=== PATIENT | female | born 1940 | race Caucasian/White ===

== ENCOUNTER 2018-10-02 06:32 | Day surgery (SDC) | payer MEDICARE, OTHER, SELFPAY ==
[2018-10-02] VITALS (14 sets, daily range): BP systolic 126–187; BP diastolic 53–85; PULSE 52–75; RESP 16–20; TEMP 36.1–36.8; O2SAT 93–99; BMI 26.2
[2018-10-02] MEDS: LACTATED RINGERS 1,000 ML 100 ML IV ×3 (07:34→21:11)
--- NOTE | 2018-10-02 07:46 | PM.PREOP ---
Pre-operative Note Interval Note History & Physical reviewed/Exam performed by Physician: Yes Changes to H&P: No
[2018-10-02] MEDS: CEFAZOLIN 2 GM/100 ML FROZ.PIGGY IV (07:52)
[2018-10-02] MEDS: BUPIVACAINE 0.25% W/ EPI 30 ML VIAL INJ (08:27)
[2018-10-02] MEDS: fentaNYL 100 MCG/2 ML INJ 50 MCG IV ×2 (09:36→09:45)
--- NOTE | 2018-10-02 12:09 | PC.NURSE ---
Addendum entered by Alba Granados R.N. 10/02/18 14:59: Pain well-controlled with scheduled Tylenol. Weaned off O2, sats in the mid 90's on room air. Resting quietly, denies needs at this time. Light in reach, bed alarm on. Original Note: Post-op: Arrived to room 216 at 1045. Drowsy at that time, alert and awake now. No bleeding on tatiana-pad. Carrillo to gravity, urine clear yellow. IVF per order, site in R wrist/hand WNL. Reports 3/10 pain in her thighs, relieved when SCD's were turned off. Instructed re: importance of ankle waving when not wearing SCD's. On 2L O2 per NC, sats in the mid 90's. Lungs CTA, HRR. Denies N/V, BT present but hypoactive. Denies flatus. Oriented to room and call light, encouraged to make needs known. Light in reach, bed alarm on.
[2018-10-02] MEDS: ACETAMINOPHEN 325 MG TABLET 975 MG PO ×2 (12:57→20:28)
--- NOTE | 2018-10-02 16:53 | PC.NURSE ---
Addendum entered by Cat Thompson R.N. 10/02/18 21:25: Pt med at 2100 w/tylenol for discomfort. Small amount red drainage noted on tatiana pad and bed. Bed linen changed. Pt tolerated sitting in chair for a few minutes w/ bed changed w/o incidence. IVF continue via pump as per orders Carrillo cath patent clear yellow urine Pt refused SCDs even after pt education. Call light w/in reach, bed alarm on for pt safety. Continue w/plan of care. Original Note: Pt visiting with family. Denies discomfort at this time. Lungs clear, SpO2 98% RA IV LR infusing into the right hand at 100cc/hr via pump w/o incidence. Abdomen soft. Tatiana pad CDI. Carrillo cath patent clear yellow urine. Call light w/in reach, bed alarm on for pt safety.
[2018-10-02] MEDS: DOCUSATE 250 MG CAPSULE PO (19:59)
[2018-10-02] MEDS: CITALOPRAM 20 MG TABLET 40 MG PO (20:26)
[2018-10-03 00:09] VITALS: BP 163/60; PULSE 66; RESP 16; TEMP 36.6; O2SAT 97
[2018-10-03] MEDS: ACETAMINOPHEN 325 MG TABLET 975 MG PO ×2 (00:10→05:49)
--- NOTE | 2018-10-03 00:52 | PC.NURSE ---
2300- POD#0 anterior cystocele; moore catheter in place patent draining pale yellow urine. Pt denies any burning sensation but states she feels like she has to urinate 'all the time'. Bladder not distended; LR running as ordered. Pt remains A+Ox3. 0000- PO tylenol given for 5/10 pain at surgical site. VSS; no needs. 0600- Evening RN told this RN to remove moore @ 0600 however no orders or notes are present in the computer from the MD. Will pass onto next nurse.
[2018-10-03 05:05] VITALS: BP 148/71; PULSE 63; RESP 16; TEMP 36.4; O2SAT 95
[2018-10-03 06:07] LABS: Add Manual Diff / Slide Review NO; Basophils Absolute Auto 0 /uL (0-100); Basophils Percent Auto 0.4 % (0-2); Eosinophils Absolute Auto 0 /uL (0-450); Eosinophils Percent Auto 0.2 % (2-4); Hematocrit 38.5 % (36-46); Lymphocytes Absolute Auto 1100 /uL (1100-4500); Mean Corpuscular HGB Conc 33.7 % (30-36); Mean Corpuscular Hemoglobin 29.6 PG (26-34); Monocytes Absolute Auto 600 /uL (0-900); Monocytes Percent Auto 5.1 % (3-14); Neutrophils Absolute Auto 9200 /uL (1500-7000); Neutrophils Percent Auto 84.3 % (50-75); Platelet Count 170 X10^3/uL (150-400); Red Blood Cell Count 4.38 X10^6/uL (4.0-5.2); Red Cell Distribution Width 13.5 % (11.6-14.8); White Blood Cell Count 10.9 X10^3/uL (4.5-11.0)
[2018-10-03 07:45] VITALS: BP 153/62; PULSE 52; RESP 16; TEMP 36.5; O2SAT 96
[2018-10-03] MEDS: DOCUSATE 250 MG CAPSULE PO (08:57)
[2018-10-03 11:30] VITALS: BP 150/70; PULSE 58; RESP 16; TEMP 36.5; O2SAT 99
--- NOTE | 2018-10-03 14:03 | PC.NURSE ---
Day shift: Pt left unit via WC with this editorial writer to her friends private car for a ride home at 1400. Paperwork signed and all questions answered. Pt has all personal belongings as well as MD scrips.
--- NOTE | 2018-10-03 14:35 | CM.DANOTE ---
Discharge Planning/Care Management DCP: assessment: case received and discussed in Team Rounds. Pt is a 78 year old female who admitted to Dr. Bennett yesterday for a planned gynecological surgery. Payer: Medicare and for Life Admission status: SDC: confirmed by UR IRENA Jackson. Dr. Bennett saw pt today and ok'd her for a d/c home today. Went to room to check in with pt. IRENA Villarreal confirmed that she left for home at 1400 in pvt vehicle driven by a friend. No concerns re the d/c were noted by the care team members. Advanced directive, confirm from FAMILY Start: 10/02/18 11:55 Freq: Q24H Status: Discharge Protocol: Document 10/02/18 11:55 KTE (Rec: 10/02/18 11:55 KTE [email or web address]) Advance Directive, confirm on record Time 11:55 Person contacted family Copy received No Document 10/03/18 11:19 YAD (Rec: 10/03/18 11:19 YAD [id number]) Advance Directive, confirm on record Time 11:55 Person contacted family Copy received No Time 11:19 Person contacted patient Copy received No CM Discharge Assessment Start: 10/03/18 14:34 Freq: Status: Active Protocol: Document 10/03/18 14:35 ITV (Rec: 10/03/18 14:35 ITV [id number]) Discharge Planning Assessment Advance Directives? Yes Advance Directives on File No History Provided By Patient Medical Record Prior Living Arrangements House Household Members none Willing to Return to Facility? No: N/A Review Status In Process Next Review Type Continued Stay Review Pre-Anesthesia Assessment Start: 09/27/18 08:14 Freq: Status: Discharge Protocol: Document 09/27/18 08:14 CAB (Rec: 09/27/18 08:22 CAB [id number]) Pre-Anesthesia Assessment Patient Information Reviewed Via Chart Review Primary Care Provider Marie Larios Seen Specialist in Last 12 Months Yes Specialist Seen Director Of Technology Primary Language Dutch License Issuer Required No Height 165.1 cm Hx Anesthesia Reactions Unknown Anesthesia Review Requested No Collar Band Creaser No alcohol intake current alcohol intake frequency 0-2 drinks per day Smoking Status Never smoker History of Falling (Recent or History of Yes ) Patient is completely paralyzed or No completely immobile Mental Status Oriented to own ability Is patient on oxygen? No Does patient have NARAYANAN/SOB No Hx Sleep Apnea No Currently Taking a Beta Jennifer No Hx Chest Pain No Hx SOB No Hx Syncope or Dizziness No Anti-Coagulant Therapy No Has a Roughener No Cardiac Testing No Hx Pacemaker/ICD No Pacemaker Rep Required? No Cardiac Clearance Received Not Applicable Bladder Pattern Incontinent Urgency Urinary Catheter Present No Hx Urinary Self Catheterization No Diabetes No Patient No Lactating No Patient Discharge Plan Description Return Home
--- NOTE | 2018-10-12 16:52 | P.OP_ITS ---
Operative Date/Time/Diagnoses Date of procedure: 10/02/18 Time of procedure: 09:00 Pre-op diagnosis: Symptomatic cystocele and rectocele Post-op diagnosis: same Procedure: Procedures Operation Date: 10/02/18 07:45 Actual Procedures Side Surgeon p Colporrhaphy Anterior/Posterior Colporrhaphy Cat Bennett MD Indications: Symptomatic cystocele and rectocele Surgeon: Cat Bennett Group Product Manager: Rodolfo Gomes Anesthesia Type: General Operative Notes Closure Type: primary Specimen(s): none Applied: catheter Estimated blood loss (mL): 5 Blood products transfused: none Procedure in detail: The patient was taken to the operating room where she was placed in the dorsal supine position. After adequate general endotracheal anesthesia was achieved, she was placed in the dorsal lithotomy position, and prepped and draped in the usual sterile fashion. A time-out was performed. 2 Allis clamps were placed at the apex of the cystocele. 6 mL of half percent Marcaine with epinephrine were injected and an incision was made with a #10 blade between the 2 Allis clamps. Wide Allis clamps were placed on the midline of the cystocele approximately 5. The mucosa was undermined using the Metzenbaum scissors and the mucosa incised in the midline moving the wide Allis clamps to the edges of the mucosa. The mucosa was dissected off the underlying fascia using an open moistened Ray-Mayela and a #10 blade. The fascia was reapproximated with 0 Vicryl with a series of horizontal mattress sutures. The excess vaginal mucosa was excised. The mucosa was closed using simple interrupted sutures with 2-0 Vicryl including the underlying fascia to close the space. The weighted speculum was removed from the vagina. Allis clamps were placed at the mucocutaneous junction at the introitus. 6 mL of half percent Marcaine with epinephrine were injected. An incision was made with a #10 blade between the 2 Allis clamps, and a triangular piece of skin and underlying subcutaneous tissue was removed. Allis clamps were placed in the midline of the rectocele. 10 mL of half percent Marcaine with epinephrine were injected submucosally. The mucosa was undermined using the Metzenbaum scissors and the mucosa incised in the midline, moving the wide Allis clamps to the mu cosal edges. The underlying fascia was dissected off of th mucosa using an open moistened Ray-Mayela and a #10 blade. The fascia was reapproximated using 0 Vicryl with a series of horizontal mattress sutures. The excess vaginal mucosa was excised. The mucosa was closed using a series of simple interrupted sutures with 2-0 Vicryl including the underlying fascia to close the space. On the perineum 0 Vicryl was used to reapproximate the levator muscle. The subcutaneous layer was closed with 2-0 Vicryl. The skin was closed with 3-0 chromic in a subcuticular fashion. Hemostasis was achieved. A Betadine moistened vaginal pack was placed into the vagina. A rectal exam was done and there were no sutures palpable in the rectum. The urine was clear. Sponge, lap, and instrument counts were correct x-2. The patient tolerated the procedure well, was taken to PACU in stable condition. Complications: none Post-operative Condition: stable Disposition: PACU Plan for aftercare: To acute care after recovery
--- NOTE | 2018-10-12 16:57 | PM.DS.1 ---
History of Present Illness Date Patient Seen: 10/03/18 Time Patient Seen: 13:45 Chief complaint: [id number] ANTERIOR POSTERIOR REPAIR *OPB* Narrative: Patient is a 78-year-old postop day # 1 status post anterior and posterior repair Discharge Providers Date of admission: 10/02/2018 Discharge Date: 10/03/18 Primary care physician: Marie Larios DO Discharge provider: Cat Bennett MD Summary Discharge Diagnosis: Third-degree cystocele 2nd to third-degree rectocele Status post anterior and posterior repair Hospital Course: Patient was admitted on 10/02/2018 for a scheduled anterior and posterior repair. She underwent this procedure without complication. On postop day # 1 she was able to void with decreasing postvoid residuals. She had no nausea or vomiting. She had no significant bleeding. She was tolerating a diet and ambulating independently. She was discharged home on postop day # 1. Status at Discharge Cognitive/behavioral status at discharge: oriented Functional status at discharge: independent ambulation Overall status at discharge: patient is progressing back to baseline Time Spent with Patient Less than 30 minutes Exam Vital Signs (past 8 hours): Oxygen Delivery Method Room Air Oxygen Flow Rate 0 Narrative Exam Narrative: Generally: Patient is sitting up in bed, no acute distress Lungs: Clear to auscultation bilaterally Cardiovascular: Regular rate and rhythm Abdomen: Soft and flat. Good bowel sounds. Perineum: Dry Extremities: Negative Homans, no edema Objective Labs Result Diagrams: 10/03/18 06:00 Discharge Plan Discharge Plan Patient Disposition: Home Discharge comment: Call with fever, chills or bleeding vaginally more than spotty to light Ibuprofen 400-600mg every 6 hours as needed Stool softners No heavy lifting or lunging Discharge Med Rec/Prescriptions Prescriptions: New oxycodone-acetaminophen [Percocet] 5-325 mg tablet 1 tab PO Q4-6H PRN (Reason: pain) Qty: 20 RF: 0 Continued bupropion HCl 150 mg tablet sustained-release 12 hr 150 mg PO DAILY RF: 0 citalopram 40 mg tablet 40 mg PO DAILY RF: 0 Discontinued acetaminophen 650 MG tablet extended release 650 mg PO Q6-8H Qty: 0 RF: 0 estradiol [Estrace] 0.01 % (0.1 mg/gram) cream 1 gram VAG .COMPLEX Qty: 42.5 RF: 2 estradiol [Vagifem] 10 mcg tablet 10 mcg VAG .COMPLEX Qty: 20 RF: 3 Follow up/Referrals: Cat Bennett MD [Physician] - 1 Month ( 3 week follow up ) Discharge Orders: Discharge (Order); Ordered 10/03/18 Ordered By: Cat Bennett Provider Discharge Instructions Diet: Diet as Tolerated Activity: No heavy lifting No lunging or squatting Skin/Wound/Dressing Care Report to your healthcare provider any signs of infection, such as:: chills, fever, increased pain and unusual drainage Visit Report/Discharge Packet Instructions: DI for Cystocele/Rectocele, Oxycodone/Acetaminophen (By mouth) Stand Alone Forms: Surgery Discharge Discharge Data Primary Care Provider: Marie Larios Attending Provider: Cat Bennett Discharges patient from system. Discharge Date/Time: 10/03/18 14:04 Quality VTE Deep Vein Thrombosis/Pulmonary Embolism Present on Admission: No
== END 2018-10-03 14:04 | disposition home or self-care (01) ==
LOC: OR 06:42 → AC 06:52
PROVIDERS: PCP Family Medicine; Visit Provider Obstetrics & Gynecology
PROC: (CPT 57260; principal; 2018-10-02 07:45)
DX: N81.10 Cystocele, unspecified (principal); N81.6 Rectocele
CPT/HCPCS: 57260; 36415; 85025; J0690; J1100; J2405; J2704; J3010

== ENCOUNTER → 2018-11-13 11:36 | Outpatient (CLI) | payer MEDICARE, OTHER, SELFPAY ==
[2018-10-02 11:42] VITALS: BMI 26.2
[2018-11-13 12:34] LABS: Appearance Urine UA CLOUDY; Bilirubin Urine UA NEGATIVE (NEGATIVE); Color Urine UA YELLOW; Glucose Urine UA NEGATIVE (Negative); Ketones Urine UA NEGATIVE (NEGATIVE); Leukocyte Esterase Urine UA 2+ (NEGATIVE); Nitrite Urine UA NEGATIVE (Negative); Occult Blood Urine UA 3+ (Negative); Protein Urine UA 1+ (Negative); Urobilinogen Urine UA 0.2 E.U./dL (0.2)
[2018-11-13 12:47] LABS: RBC Urine 5-10/HPF (0-5/HPF)
[2018-11-13 12:48] LABS: Bacteria Urine Many (>30); Culture Indicated Urine Specimen Cultured; Squamous Epithelial Cell Urine None Seen (0-5/HPF); Transitional Epi Cells Urine 0-1/HPF (0-5/HPF); WBC Urine 30-100/HPF (0-5/HPF)
== END ==
PROVIDERS: PCP Family Medicine; Visit Provider Obstetrics & Gynecology
DX: R30.0 Dysuria (principal); R31.9 Hematuria, unspecified
CPT/HCPCS: 81001; 87077; 87086; 87186

== ENCOUNTER 2019-01-30 09:45 | Outpatient (RCR) | payer MEDICARE, OTHER, SELFPAY ==
[2018-10-02 11:42] VITALS: BMI 26.2
--- NOTE | 2018-12-20 14:36 | PT.OIE ---
Current Diagnoses Other specific joint derangements of left hip, not elsewhere classified (12/18/18) Pain in unspecified hip (12/18/18) Pelvic and perineal pain (12/18/18) Left lower quadrant pain (12/18/18) Past Medical History (Last Updated 09/27/18 @ 08:22 by Michelle Sutton RN) Breast cancer, left (Acute) Cystocele with rectocele (Acute) Past Surgical History (Last Updated 10/26/18 @ 16:41 by Rosa Payne) History of vaginal hysterectomy (Acute) Status post left breast lumpectomy (Acute) Status post surgery (Acute 10/02/18) Provider Visit Care Team Role Provider Type Marie Larios DO Primary Care Provider Non-Staff Specialty: Family Practice Address: [address] [place] [address], [phone] Email: Cat Bennett MD Attending Provider Physician Specialty: PAYMENT REP Address: [address] [place] [address], [id number] Email: [email or web address] Physical Therapy Initial Evaluation PT-OP-A Visit Information Start: 12/20/18 13:47 Freq: Status: Active Protocol: Document 12/18/18 10:30 AMH (Rec: 12/20/18 14:30 AMH [email or web address]) Out-Patient Physical Therapy Visit Information Visit Information Visit Type Initial Evaluation Visit Note 78 year old female with c/o left sided pelvic and groin pain that has been going on for a few years. Standing and walking makes it worse Visit Start Time 10:30 Visit Stop Time 11:15 Total Visit Minutes 45 Visit Number 1 Evaluation Information Evaluation Date 12/18/18 PT-OP-B Current Condition Start: 12/20/18 13:47 Freq: Status: Active Protocol: Document 12/18/18 10:30 AMH (Rec: 12/20/18 14:30 AMH [email or web address]) Current Condition History of Current Condition Onset Date symptoms began a few years ago Current Complaints left sided groin and pelvic pain that limits walking History of Current Condition Juani reports her symptoms of left sided groin pain began a few years ago. She attributed her pain with a prolapsed bladder and rectum as she was having a great deal of pelvic pressure from this. She did undergo a anterior posterior repair a year ago and although the pelvic pressure has been reduced she is still feeling the groin pain. The pain will begin in her left anterior hip and then will actually progress to include pain behind her knee and she notes it feels like the circulation is being cut off into her lower leg. Her walking is very limited at this time as walking increases her symptoms. Treatment Goals Patient/Caregiver Goals Nathan would like to return to walking 3 miles per day PT-OP-F Manual Assessment Start: 12/20/18 13:47 Freq: Status: Active Protocol: Document 12/18/18 10:30 AMH (Rec: 12/20/18 14:30 AMH [email or web address]) Manual Assessments Soft Tissue Assessment Soft Tissue Mobility Assessment tightness and spasm of the left adductors as compared to the right, tightness of the transverse perineum on the left Joint Mobility Assessment Joint Mobility Assessment decreased left hip capsule posterior and lateral glide, the hip is help in a anterior position creating hip impingement. Decreased hip ER on the left and pain with hip ER PT-OP-G Mobility & Gait Start: 12/20/18 13:47 Freq: Status: Active Protocol: Document 12/18/18 10:30 AMH (Rec: 12/20/18 14:30 AMH [email or web address]) OP Gait Assessment Gait Gait Assistance Required: Independent Able to Maintain Weight Bearing Status Yes During Gait Comments Gait Comments decreased hip flexion with heel strike, antalgic gait pattern with decreased Weight bearing on the left LE PT-OP-K Range of Motion Start: 12/20/18 13:47 Freq: Status: Active Protocol: Document 12/18/18 10:30 AMH (Rec: 12/20/18 14:30 AMH [email or web address]) Hip Goniometric Range of Motion Hip Measured in Degrees Left Hip ROM WFL No Testing Position Supine Flexion w/Knee Flexed 90 External Rotation 10 Hip ROM Limitations Hip ROM Limitations Soft Tissue Tightness Bony Restriction Pain Comments pain and impingement with hip flexion and with hip ER, decreased hip posterior glide PT-OP-M Strength Start: 12/20/18 13:47 Freq: Status: Active Protocol: Document 12/18/18 10:30 AMH (Rec: 12/20/18 14:30 AMH [email or web address]) Hip Strength Hip Manual Muscle Testing Left Flexion (L2) 3+ Fair+ Abduction 3 Fair External Rotation 3 Fair PT-OP-Q Treatments Start: 12/20/18 13:47 Freq: Status: Active Protocol: Document 12/18/18 10:30 AMH (Rec: 12/20/18 14:30 AMH [email or web address]) Therapeutic Exercises Other Exercises 1 Other Exercise Name quadruped rock backs Side bilateral Reps/Minutes x 10 reps Manual Therapy Treatment Soft Tissue Mobilization 1 Body Location adductor release on the left Mobilization Type Myofascial Release Intensity/Depth Moderate Body Position Supine Manual Techniques 1 Type manual distraction of the left hip and distraction with hip ER/flexion Body Position Supine PT-OP-R Modalities Start: 12/20/18 14:30 Freq: Status: Active Protocol: Document 12/18/18 10:30 AMH (Rec: 12/20/18 14:31 [facility] [email or web address]) Ultrasound Therapy Treatment left adductors Treatment Duration (minutes) 8 Patient Position Supine Coupling Medium Ultrasound Gel Applicator Size (cm2) 5 Mode Setting Continuous Duty Cycle 100% Intensity Setting (w/cm2) 1.5 PT-OP-T Assessment and Plan Start: 12/20/18 13:47 Freq: Status: Active Protocol: Document 12/18/18 10:30 [facility] (Rec: 12/20/18 14:30 [facility] [email or web address]) Physical Therapy Assessment Rehab Potential Rehabilitation Potential Excellent Evaluation Complexity Number of Personal Factors/Comorbidities 0 Number of Body Systems Impaired 1-2 Clinical Presentation at Evaluation Stable Impairments Impairments Activity Tolerance Functional Mobility Gait Pain ROM Soft Tissue Mobility Strength Tone Other Impairments posterior hip capsule tightness Goals Four Impairment Decreased posterior glide of the left hip in the capsule Custodial Goal (LTG) Reduce anteior hip impingment symptoms and improve posterior glide of the hip in the capsule to provide more room for the hip to rotate with hip flexion and hip ER LTG Duration 6-8 weeks Three Impairment Muscle guarding and spasm of the left adductors and transverse perineal Short Term Goal (STG) Reduce muscle guarding and spasm with gentle stretching and manual techniques STG Duration 4-6 weeks Two Impairment decreased hip flexion to 90 deg, hip ER 10 deg L Short Term Goal (STG) Improve full pain free hip ROM without anterior hip pain or pinching STG Duration 4-6 weeks One Impairment left anterior hip pain that prevents walking more than 5- 10 minutes Custodial Goal (LTG) Juani reports overall decreased hip and groin pain and is able to return to her walks of 2-3 miles in length LTG Duration 8 weeks Assessment Summary Assessment Juani presents to physical therapy with complaints of left hip and groin pain. With examination today she is guarded in the left adductors and her femoral head on the left sits in a anterior position. She is presenting with anterior hip impingement symptoms when attempting to flex at her hip. She lacks a posterior glide of the femoral head and has a tight posterior hip capsule. She reports she had a anterior/ posterior repair a year ago and this helped with overall pelvic pressure but the hip pain has remained. She is tight in the left transverse perineal along with the left adductor. She is weak in her hip flexors and hip abductors on the left and limited with both hip flexion and hip ER. Walking increases her symptoms and she is limited in her walking distance. She also reports some referral symptoms of pain into her calf and that it feels like her circulation is being cut off when she walks. Treatment today began with ultrasound over the left adductors, MFR to the adductors and distraction with hip flexion and ER. She tolerated this well and was given a stretch to help with hip flexion for home. Treatment will emphasize improved hip ROM without impingement, releasing adductor and transverse perineal tightness/guarding, strengthening the core and hip and progressing her walking distance. Physical Therapy Plan Frequency and Duration Frequency of Treatment 2x/Week Duration of Treatment 8 weeks Plan of Care Start Date 12/18/18 Plan of Care End Date 02/19/19 Therapeutic Interventions Therapeutic Interventions Home Exercise Program Joint Mobilizations Manual Therapy Neuromuscular Re-education Patient/Caregiver Education Self-Care/Home Management Soft Tissue Mobilization Therapeutic Activities Modalities Biofeedback Ultrasound Next Visit Focus/Plan Next Note Type Treatment Note Next Visit Plan begin gentle posterior hip glides, adductor stretches for home, manual release of the adductors
--- NOTE | 2018-12-26 13:18 | PT.OTN ---
Current Diagnoses Other specific joint derangements of left hip, not elsewhere classified (12/26/18) Pain in unspecified hip (12/26/18) Pelvic and perineal pain (12/26/18) Left lower quadrant pain (12/26/18) Physical Therapy Treatment Note PT-OP-A Visit Information Start: 12/20/18 13:47 Freq: Status: Active Protocol: Document 12/26/18 09:45 [facility] (Rec: 12/26/18 13:17 [facility] [email or web address]) Out-Patient Physical Therapy Visit Information Visit Information Visit Type Treatment Note Visit Start Time 09:45 Visit Stop Time 10:30 Total Visit Minutes 45 Visit Number 2 Evaluation Information Evaluation Date 12/18/18 PT-OP-B Current Condition Start: 12/20/18 13:47 Freq: Status: Active Protocol: Document 12/18/18 10:30 [facility] (Rec: 12/20/18 14:30 [facility] [email or web address]) Current Condition History of Current Condition Onset Date symptoms began a few years ago Current Complaints left sided groin and pelvic pain that limits walking History of Current Condition Juani reports her symptoms of left sided groin pain began a few years ago. She attributed her pain with a prolapsed bladder and rectum as she was having a great deal of pelvic pressure from this. She did undergo a anterior posterior repair a year ago and although the pelvic pressure has been reduced she is still feeling the groin pain. The pain will begin in her left anterior hip and then will actually progress to include pain behind her knee and she notes it feels like the circulation is being cut off into her lower leg. Her walking is very limited at this time as walking increases her symptoms. Treatment Goals Patient/Caregiver Goals Nathan would like to return to walking 3 miles per day PT-OP-C Subjective Start: 12/20/18 13:47 Freq: Status: Active Protocol: Document 12/26/18 09:45 [facility] (Rec: 12/26/18 13:18 [facility] [email or web address]) OP-PT Subjective Patient Comments Patient Comments Juani reports she noticed her left calf and lower leg is turing red with walking. She reports feeling as if her circulation is being cut off and her leg gets painful. PT-OP-F Manual Assessment Start: 12/20/18 13:47 Freq: Status: Active Protocol: Document 12/18/18 10:30 [facility] (Rec: 12/20/18 14:30 [facility] [email or web address]) Manual Assessments Soft Tissue Assessment Soft Tissue Mobility Assessment tightness and spasm of the left adductors as compared to the right, tightness of the transverse perineum on the left Joint Mobility Assessment Joint Mobility Assessment decreased left hip capsule posterior and lateral glide, the hip is help in a anterior position creating hip impingement. Decreased hip ER on the left and pain with hip ER PT-OP-G Mobility & Gait Start: 12/20/18 13:47 Freq: Status: Active Protocol: Document 12/18/18 10:30 [facility] (Rec: 12/20/18 14:30 [facility] [email or web address]) OP Gait Assessment Gait Gait Assistance Required: Independent Able to Maintain Weight Bearing Status Yes During Gait Comments Gait Comments decreased hip flexion with heel strike, antalgic gait pattern with decreased Weight bearing on the left LE PT-OP-K Range of Motion Start: 12/20/18 13:47 Freq: Status: Active Protocol: Document 12/18/18 10:30 [facility] (Rec: 12/20/18 14:30 [facility] [email or web address]) Hip Goniometric Range of Motion Hip Measured in Degrees Left Hip ROM WFL No Testing Position Supine Flexion w/Knee Flexed 90 External Rotation 10 Hip ROM Limitations Hip ROM Limitations Soft Tissue Tightness Bony Restriction Pain Comments pain and impingement with hip flexion and with hip ER, decreased hip posterior glide PT-OP-M Strength Start: 12/20/18 13:47 Freq: Status: Active Protocol: Document 12/18/18 10:30 [facility] (Rec: 12/20/18 14:30 [facility] [email or web address]) Hip Strength Hip Manual Muscle Testing Left Flexion (L2) 3+ Fair+ Abduction 3 Fair External Rotation 3 Fair PT-OP-Q Treatments Start: 12/20/18 13:47 Freq: Status: Active Protocol: Document 12/26/18 09:45 [facility] (Rec: 12/26/18 13:17 [facility] [email or web address]) Therapeutic Exercises Supine Exercises 1 Supine Exercise Name hip stretches including happy baby and piriformis stretch Reps/Minutes hold 1-2 min Standing Exercises 1 Standing Exercise Name standing hip ROM including circles each direction Other Exercises 1 Other Exercise Name quadruped rock backs Side bilateral Reps/Minutes x 10 reps Manual Therapy Treatment Soft Tissue Mobilization 1 Body Location adductor release on the left Mobilization Type Myofascial Release Intensity/Depth Moderate Body Position Supine Manual Techniques 2 Type manual hip ROM and stretching 1 Type manual distraction of the left hip and distraction with hip ER/flexion Body Position Supine PT-OP-R Modalities Start: 12/20/18 14:30 Freq: Status: Active Protocol: Document 12/26/18 09:45 [facility] (Rec: 12/26/18 13:17 [facility] [email or web address]) Ultrasound Therapy Treatment left adductors Treatment Duration (minutes) 8 Patient Position Supine Coupling Medium Ultrasound Gel Applicator Size (cm2) 5 Mode Setting Continuous Duty Cycle 100% Intensity Setting (w/cm2) 1.5 PT-OP-T Assessment and Plan Start: 12/20/18 13:47 Freq: Status: Active Protocol: Document 12/26/18 09:45 [facility] (Rec: 12/26/18 13:17 [facility] [email or web address]) Physical Therapy Assessment Assessment Summary Assessment Rosalinds symptoms of left calf feeling like she is loosing circulation and turning red with walking with pain raises some red flags for me. I have called DR. Bennett' s office and will put a call in to her primary care doctor. She has a family history of blood clots so I want to make sure she is cleared as the calf pain and redness should not be coming from her hip impingement symptoms. Physical Therapy Plan Frequency and Duration Frequency of Treatment 2x/Week Duration of Treatment 8 weeks Plan of Care Start Date 12/18/18 Plan of Care End Date 02/19/19 Therapeutic Interventions Therapeutic Interventions Home Exercise Program Joint Mobilizations Manual Therapy Neuromuscular Re-education Patient/Caregiver Education Self-Care/Home Management Soft Tissue Mobilization Therapeutic Activities Modalities Biofeedback Ultrasound Next Visit Focus/Plan Next Note Type Treatment Note Next Visit Plan continue to work on painfree hip ROM and stretching, placing call in to the patients primary care doctor for follow up on her calf symptoms
--- NOTE | 2019-01-10 09:32 | PT.OTN ---
Current Diagnoses Other specific joint derangements of left hip, not elsewhere classified (01/09/19) Pain in unspecified hip (01/09/19) Pelvic and perineal pain (01/09/19) Left lower quadrant pain (01/09/19) Physical Therapy Treatment Note PT-OP-A Visit Information Start: 12/20/18 13:47 Freq: Status: Active Protocol: Document 01/09/19 09:45 [facility] (Rec: 01/10/19 09:32 [facility] [email or web address]) Out-Patient Physical Therapy Visit Information Visit Information Visit Type Treatment Note Visit Start Time 09:45 Visit Stop Time 10:30 Total Visit Minutes 45 Visit Number 3 PT-OP-B Current Condition Start: 12/20/18 13:47 Freq: Status: Active Protocol: Document 12/18/18 10:30 [facility] (Rec: 12/20/18 14:30 [facility] [email or web address]) Current Condition History of Current Condition Onset Date symptoms began a few years ago Current Complaints left sided groin and pelvic pain that limits walking History of Current Condition Juani reports her symptoms of left sided groin pain began a few years ago. She attributed her pain with a prolapsed bladder and rectum as she was having a great deal of pelvic pressure from this. She did undergo a anterior posterior repair a year ago and although the pelvic pressure has been reduced she is still feeling the groin pain. The pain will begin in her left anterior hip and then will actually progress to include pain behind her knee and she notes it feels like the circulation is being cut off into her lower leg. Her walking is very limited at this time as walking increases her symptoms. Treatment Goals Patient/Caregiver Goals Nathan would like to return to walking 3 miles per day PT-OP-C Subjective Start: 12/20/18 13:47 Freq: Status: Active Protocol: Document 01/09/19 09:45 [facility] (Rec: 01/10/19 09:32 [facility] [email or web address]) OP-PT Subjective Patient Comments Patient Comments Saw and had her ultrasound that ruled out blood clot. Doing better overall with pain but did overdo it yesterday with walking. Leg is still turning red following walking PT-OP-F Manual Assessment Start: 12/20/18 13:47 Freq: Status: Active Protocol: Document 12/18/18 10:30 [facility] (Rec: 12/20/18 14:30 [facility] [email or web address]) Manual Assessments Soft Tissue Assessment Soft Tissue Mobility Assessment tightness and spasm of the left adductors as compared to the right, tightness of the transverse perineum on the left Joint Mobility Assessment Joint Mobility Assessment decreased left hip capsule posterior and lateral glide, the hip is help in a anterior position creating hip impingement. Decreased hip ER on the left and pain with hip ER PT-OP-G Mobility & Gait Start: 12/20/18 13:47 Freq: Status: Active Protocol: Document 12/18/18 10:30 [facility] (Rec: 12/20/18 14:30 [facility] [email or web address]) OP Gait Assessment Gait Gait Assistance Required: Independent Able to Maintain Weight Bearing Status Yes During Gait Comments Gait Comments decreased hip flexion with heel strike, antalgic gait pattern with decreased Weight bearing on the left LE PT-OP-K Range of Motion Start: 12/20/18 13:47 Freq: Status: Active Protocol: Document 12/18/18 10:30 [facility] (Rec: 12/20/18 14:30 [facility] [email or web address]) Hip Goniometric Range of Motion Hip Left Hip ROM WFL No Testing Position Supine Flexion w/Knee Flexed 90 External Rotation 10 Hip ROM Limitations Hip ROM Limitations Soft Tissue Tightness Bony Restriction Pain Comments pain and impingement with hip flexion and with hip ER, decreased hip posterior glide PT-OP-M Strength Start: 12/20/18 13:47 Freq: Status: Active Protocol: Document 12/18/18 10:30 [facility] (Rec: 12/20/18 14:30 [facility] [email or web address]) Hip Strength Hip Manual Muscle Testing Left Flexion (L2) 3+ Fair+ Abduction 3 Fair External Rotation 3 Fair PT-OP-Q Treatments Start: 12/20/18 13:47 Freq: Status: Active Protocol: Document 01/09/19 09:45 [facility] (Rec: 01/10/19 09:32 [facility] [email or web address]) Therapeutic Exercises Supine Exercises 1 Supine Exercise Name hip stretches including happy baby and piriformis stretch Reps/Minutes hold 1-2 min Sidelying Exercises 1 Sidelying Exercise Name sidelying hip abduction Reps/Minutes 3x10 2 Sidelying Exercise Name sidelying clam shells Reps/Minutes 3x10 Standing Exercises 1 Standing Exercise Name standing hip ROM including circles each direction Manual Therapy Treatment Soft Tissue Mobilization 1 Body Location adductor release on the left Mobilization Type Myofascial Release Intensity/Depth Moderate Body Position Supine Manual Techniques 2 Type manual hip ROM and stretching 1 Type manual distraction of the left hip and distraction with hip ER/flexion Body Position Supine PT-OP-R Modalities Start: 12/20/18 14:30 Freq: Status: Active Protocol: Document 12/26/18 09:45 [facility] (Rec: 12/26/18 13:17 [facility] [email or web address]) Ultrasound Therapy Treatment left adductors Treatment Duration (minutes) 8 Patient Position Supine Coupling Medium Ultrasound Gel Applicator Size (cm2) 5 Mode Setting Continuous Duty Cycle 100% Intensity Setting (w/cm2) 1.5 PT-OP-T Assessment and Plan Start: 12/20/18 13:47 Freq: Status: Active Protocol: Document 01/09/19 09:45 [facility] (Rec: 01/10/19 09:32 [facility] [email or web address]) Physical Therapy Assessment Assessment Summary Assessment adductors still very tight but hip ROM is improving. Added in some lateral hip stabilization today for Juani and she tolerated this well Physical Therapy Plan Frequency and Duration Frequency of Treatment 2x/Week Duration of Treatment 8 weeks Plan of Care Start Date 12/18/18 Plan of Care End Date 02/19/19 Next Visit Focus/Plan Next Note Type Treatment Note Next Visit Plan warm up on the biodex next visit prior to treatment
--- NOTE | 2019-01-23 13:02 | PT.OTN ---
Current Diagnoses Other specific joint derangements of left hip, not elsewhere classified (01/23/19) Pain in unspecified hip (01/23/19) Pelvic and perineal pain (01/23/19) Left lower quadrant pain (01/23/19) Physical Therapy Treatment Note PT-OP-A Visit Information Start: 12/20/18 13:47 Freq: Status: Active Protocol: Document 01/23/19 12:55 [facility] (Rec: 01/23/19 13:02 [facility] [email or web address]) Out-Patient Physical Therapy Visit Information Visit Information Visit Type Treatment Note Visit Start Time 09:52 Visit Stop Time 10:30 Total Visit Minutes 38 Visit Number 5 PT-OP-B Current Condition Start: 12/20/18 13:47 Freq: Status: Active Protocol: Document 12/18/18 10:30 [facility] (Rec: 12/20/18 14:30 [facility] [email or web address]) Current Condition History of Current Condition Onset Date symptoms began a few years ago Current Complaints left sided groin and pelvic pain that limits walking History of Current Condition Juani reports her symptoms of left sided groin pain began a few years ago. She attributed her pain with a prolapsed bladder and rectum as she was having a great deal of pelvic pressure from this. She did undergo a anterior posterior repair a year ago and although the pelvic pressure has been reduced she is still feeling the groin pain. The pain will begin in her left anterior hip and then will actually progress to include pain behind her knee and she notes it feels like the circulation is being cut off into her lower leg. Her walking is very limited at this time as walking increases her symptoms. Treatment Goals Patient/Caregiver Goals Nathan would like to return to walking 3 miles per day PT-OP-C Subjective Start: 12/20/18 13:47 Freq: Status: Active Protocol: Document 01/23/19 12:55 [facility] (Rec: 01/23/19 13:02 [facility] [email or web address]) OP-PT Subjective Patient Comments Patient Comments Pt reports she is doing better overall and pain is continuing to decrease in her hip. She is working on stabilizing with her abdominal wall. PT-OP-F Manual Assessment Start: 12/20/18 13:47 Freq: Status: Active Protocol: Document 12/18/18 10:30 [facility] (Rec: 12/20/18 14:30 [facility] [email or web address]) Manual Assessments Soft Tissue Assessment Soft Tissue Mobility Assessment tightness and spasm of the left adductors as compared to the right, tightness of the transverse perineum on the left Joint Mobility Assessment Joint Mobility Assessment decreased left hip capsule posterior and lateral glide, the hip is help in a anterior position creating hip impingement. Decreased hip ER on the left and pain with hip ER PT-OP-G Mobility & Gait Start: 12/20/18 13:47 Freq: Status: Active Protocol: Document 12/18/18 10:30 [facility] (Rec: 12/20/18 14:30 [facility] [email or web address]) OP Gait Assessment Gait Gait Assistance Required: Independent Able to Maintain Weight Bearing Status Yes During Gait Comments Gait Comments decreased hip flexion with heel strike, antalgic gait pattern with decreased Weight bearing on the left LE PT-OP-K Range of Motion Start: 12/20/18 13:47 Freq: Status: Active Protocol: Document 12/18/18 10:30 [facility] (Rec: 12/20/18 14:30 [facility] [email or web address]) Hip Goniometric Range of Motion Hip Left Hip ROM WFL No Testing Position Supine Flexion w/Knee Flexed 90 External Rotation 10 Hip ROM Limitations Hip ROM Limitations Soft Tissue Tightness Bony Restriction Pain Comments pain and impingement with hip flexion and with hip ER, decreased hip posterior glide PT-OP-M Strength Start: 12/20/18 13:47 Freq: Status: Active Protocol: Document 12/18/18 10:30 [facility] (Rec: 12/20/18 14:30 [facility] [email or web address]) Hip Strength Hip Manual Muscle Testing Left Flexion (L2) 3+ Fair+ Abduction 3 Fair External Rotation 3 Fair PT-OP-Q Treatments Start: 12/20/18 13:47 Freq: Status: Active Protocol: Document 01/23/19 12:55 [facility] (Rec: 01/23/19 13:02 [facility] [email or web address]) Cardio Equipment Recumbent Elliptical ([employer]) Duration (Minutes) 5 Therapeutic Exercises Standing Exercises 6 Standing Exercise Name standing quad stretch with foot on the chair Reps/Minutes hold 30 sec x 2 reps 5 Standing Exercise Name standing hip extension Reps/Minutes 2 x 10 reps 4 Standing Exercise Name standing lunge side to side for adductor stretch Reps/Minutes x 5 reps each 3 Standing Exercise Name standing adductor stretch sit-stand Standing Exercise Name sit-stand Reps/Minutes x 10 reps 2 Standing Exercise Name standing hip abduction, marches, extension 1 Standing Exercise Name standing hip ROM including circles each direction Manual Therapy Treatment Manual Techniques 2 Type manual hip ROM and stretching 1 Type manual distraction of the left hip and distraction with hip ER/flexion Body Position Supine PT-OP-R Modalities Start: 12/20/18 14:30 Freq: Status: Active Protocol: Document 12/26/18 09:45 [facility] (Rec: 12/26/18 13:17 [facility] [email or web address]) Ultrasound Therapy Treatment left adductors Treatment Duration (minutes) 8 Patient Position Supine Coupling Medium Ultrasound Gel Applicator Size (cm2) 5 Mode Setting Continuous Duty Cycle 100% Intensity Setting (w/cm2) 1.5 PT-OP-T Assessment and Plan Start: 12/20/18 13:47 Freq: Status: Active Protocol: Document 01/23/19 12:55 [facility] (Rec: 01/23/19 13:02 [facility] [email or web address]) Physical Therapy Assessment Assessment Summary Assessment improving ROM, tolerating quad and hip flexor stretching and pain is lowering. Good improvements Physical Therapy Plan Frequency and Duration Frequency of Treatment 2x/Week Duration of Treatment 8 weeks Plan of Care Start Date 12/18/18 Plan of Care End Date 02/19/19 Therapeutic Interventions Therapeutic Interventions Home Exercise Program Joint Mobilizations Manual Therapy Neuromuscular Re-education Patient/Caregiver Education Self-Care/Home Management Soft Tissue Mobilization Therapeutic Activities Modalities Biofeedback Ultrasound Next Visit Focus/Plan Next Note Type Treatment Note Next Visit Plan add shuttle squats is Juani can tolerate, review quadraped rock backs
--- NOTE | 2019-02-05 07:43 | PT.OTN ---
Current Diagnoses Other specific joint derangements of left hip, not elsewhere classified (01/30/19) Pain in unspecified hip (01/30/19) Pelvic and perineal pain (01/30/19) Left lower quadrant pain (01/30/19) Physical Therapy Treatment Note PT-OP-A Visit Information Start: 12/20/18 13:47 Freq: Status: Active Protocol: Document 01/30/19 09:45 [facility] (Rec: 02/05/19 07:43 [facility] [email or web address]) Out-Patient Physical Therapy Visit Information Visit Information Visit Type Progress Note Visit Start Time 09:45 Visit Stop Time 10:30 Total Visit Minutes 45 Visit Number 6 Evaluation Information Evaluation Date 12/18/18 PT-OP-B Current Condition Start: 12/20/18 13:47 Freq: Status: Active Protocol: Document 01/30/19 09:45 [facility] (Rec: 02/05/19 07:43 [facility] [email or web address]) Current Condition History of Current Condition Onset Date symptoms began a few years ago Current Complaints left sided groin and pelvic pain that limits walking History of Current Condition Juani reports her symptoms of left sided groin pain began a few years ago. She attributed her pain with a prolapsed bladder and rectum as she was having a great deal of pelvic pressure from this. She did undergo a anterior posterior repair a year ago and although the pelvic pressure has been reduced she is still feeling the groin pain. The pain will begin in her left anterior hip and then will actually progress to include pain behind her knee and she notes it feels like the circulation is being cut off into her lower leg. Her walking is very limited at this time as walking increases her symptoms. PT-OP-C Subjective Start: 12/20/18 13:47 Freq: Status: Active Protocol: Document 01/30/19 09:45 [facility] (Rec: 02/05/19 07:43 [facility] [email or web address]) OP-PT Subjective Patient Comments Patient Comments Juani reports she is doing much better now and is walking greater than a mile. Her pain in the left hip is decreased overall and she is doing her exercises at home. PT-OP-F Manual Assessment Start: 12/20/18 13:47 Freq: Status: Active Protocol: Document 12/18/18 10:30 [facility] (Rec: 12/20/18 14:30 [facility] [email or web address]) Manual Assessments Soft Tissue Assessment Soft Tissue Mobility Assessment tightness and spasm of the left adductors as compared to the right, tightness of the transverse perineum on the left Joint Mobility Assessment Joint Mobility Assessment decreased left hip capsule posterior and lateral glide, the hip is help in a anterior position creating hip impingement. Decreased hip ER on the left and pain with hip ER PT-OP-G Mobility & Gait Start: 12/20/18 13:47 Freq: Status: Active Protocol: Document 12/18/18 10:30 [facility] (Rec: 12/20/18 14:30 [facility] [email or web address]) OP Gait Assessment Gait Gait Assistance Required: Independent Able to Maintain Weight Bearing Status Yes During Gait Comments Gait Comments decreased hip flexion with heel strike, antalgic gait pattern with decreased Weight bearing on the left LE PT-OP-K Range of Motion Start: 12/20/18 13:47 Freq: Status: Active Protocol: Document 12/18/18 10:30 [facility] (Rec: 12/20/18 14:30 [facility] [email or web address]) Hip Goniometric Range of Motion Hip Left Hip ROM WFL No Testing Position Supine Flexion w/Knee Flexed 90 External Rotation 10 Hip ROM Limitations Hip ROM Limitations Soft Tissue Tightness Bony Restriction Pain Comments pain and impingement with hip flexion and with hip ER, decreased hip posterior glide PT-OP-M Strength Start: 12/20/18 13:47 Freq: Status: Active Protocol: Document 12/18/18 10:30 [facility] (Rec: 12/20/18 14:30 [facility] [email or web address]) Hip Strength Hip Manual Muscle Testing Left Flexion (L2) 3+ Fair+ Abduction 3 Fair External Rotation 3 Fair PT-OP-Q Treatments Start: 12/20/18 13:47 Freq: Status: Active Protocol: Document 01/30/19 09:45 [facility] (Rec: 02/05/19 07:43 [facility] [email or web address]) Cardio Equipment Recumbent Elliptical ([place]) Duration (Minutes) 5 Therapeutic Exercises Supine Exercises 1 Supine Exercise Name hip stretches including happy baby and piriformis stretch Reps/Minutes hold 1-2 min Sidelying Exercises 1 Sidelying Exercise Name sidelying hip abduction Reps/Minutes 3x10 2 Sidelying Exercise Name sidelying clam shells Reps/Minutes 3x10 Standing Exercises 6 Standing Exercise Name standing quad stretch with foot on the chair Reps/Minutes hold 30 sec x 2 reps 5 Standing Exercise Name standing hip extension Reps/Minutes 2 x 10 reps 4 Standing Exercise Name standing lunge side to side for adductor stretch Reps/Minutes x 5 reps each 3 Standing Exercise Name standing adductor stretch sit-stand Standing Exercise Name sit-stand Reps/Minutes x 10 reps 2 Standing Exercise Name standing hip abduction, marches, extension 1 Standing Exercise Name standing hip ROM including circles each direction Manual Therapy Treatment Soft Tissue Mobilization 1 Body Location adductor release on the left Mobilization Type Myofascial Release Intensity/Depth Moderate Body Position Supine Manual Techniques 2 Type manual hip ROM and stretching 1 Type manual distraction of the left hip and distraction with hip ER/flexion Body Position Supine PT-OP-R Modalities Start: 12/20/18 14:30 Freq: Status: Active Protocol: Document 12/26/18 09:45 [facility] (Rec: 12/26/18 13:17 [facility] [email or web address]) Ultrasound Therapy Treatment left adductors Treatment Duration (minutes) 8 Patient Position Supine Coupling Medium Ultrasound Gel Applicator Size (cm2) 5 Mode Setting Continuous Duty Cycle 100% Intensity Setting (w/cm2) 1.5 PT-OP-T Assessment and Plan Start: 12/20/18 13:47 Freq: Status: Active Protocol: Document 01/30/19 09:45 [facility] (Rec: 02/05/19 07:43 [facility] [email or web address]) Physical Therapy Assessment Goals Four Impairment Decreased posterior glide of the left hip in the capsule Nursing Care Attendant Goal (LTG) Reduce anteior hip impingment symptoms and improve posterior glide of the hip in the capsule to provide more room for the hip to rotate with hip flexion and hip ER GOOD PROGRESS LTG Duration 6-8 weeks Three Impairment Muscle guarding and spasm of the left adductors and transverse perineal Short Term Goal (STG) Reduce muscle guarding and spasm with gentle stretching and manual techniques STG Duration 4-6 weeks Intermediate Goal (LTG) GOOD PROGRESS Two Impairment decreased hip flexion to 90 deg, hip ER 10 deg L Short Term Goal (STG) Improve full pain free hip ROM without anterior hip pain or pinching STG Duration 4-6 weeks Nursing Care Attendant Goal (LTG) GOOD PROGRESS, DECREASED HIP PAIN AT END RANGES One Impairment left anterior hip pain that prevents walking more than 5- 10 minutes Intermediate Goal (LTG) Juani reports overall decreased hip and groin pain and is able to return to her walks of 2-3 miles in length GOOD PROGRESS< WALKING GREATER THAN A MILE NOW LTG Duration 8 weeks Progress Towards Goals Progress Towards Goals Progressing Toward Goals Assessment Summary Assessment Juani has made good progess with physical therapy and her pain symptoms are much reduced. She is able to return to walking and is up to a little over a mile without pain. She would like to get to 2-3 miles. Treatment has focused on releasing the adductor spasm and improving posterior glide of the hip capsule. We have also focused on core stabilization and hip strengthening. She feels independent with her home exercise program and will work on her own for a few weeks and then recheck back in February. Physical Therapy Plan Frequency and Duration Frequency of Treatment 1x/Week Duration of Treatment 8 weeks Plan of Care Start Date 01/30/19 Plan of Care End Date 03/29/19 Therapeutic Interventions Therapeutic Interventions Home Exercise Program Joint Mobilizations Manual Therapy Neuromuscular Re-education Patient/Caregiver Education Self-Care/Home Management Soft Tissue Mobilization Therapeutic Activities Modalities Biofeedback Ultrasound Next Visit Focus/Plan Next Note Type Treatment Note Next Visit Plan Recheck hip ROM and strength next visit in February and revise HEP as needed
--- NOTE | 2019-02-05 07:43 | PT.OPPOC ---
Current Diagnoses Other specific joint derangements of left hip, not elsewhere classified (01/30/19) Pain in unspecified hip (01/30/19) Pelvic and perineal pain (01/30/19) Left lower quadrant pain (01/30/19) Provider Visit Care Team Role Provider Type Marie Larios DO Primary Care Provider Non-Staff Specialty: Family Practice Address: [address] [place] [address], [phone] Email: Cat Bennett MD Attending Provider Physician Specialty: ROPE TOW OPERATOR Address: [address] [place] [address], [id number] Email: [email or web address] Plan Of Care PT-OP-T Assessment and Plan Start: 12/20/18 13:47 Freq: Status: Active Protocol: Document 01/30/19 09:45 [facility] (Rec: 02/05/19 07:43 [facility] [email or web address]) Physical Therapy Assessment Goals Four Impairment Decreased posterior glide of the left hip in the capsule Penitentiary Goal (LTG) Reduce anteior hip impingment symptoms and improve posterior glide of the hip in the capsule to provide more room for the hip to rotate with hip flexion and hip ER GOOD PROGRESS LTG Duration 6-8 weeks Three Impairment Muscle guarding and spasm of the left adductors and transverse perineal Short Term Goal (STG) Reduce muscle guarding and spasm with gentle stretching and manual techniques STG Duration 4-6 weeks Penitentiary Goal (LTG) GOOD PROGRESS Two Impairment decreased hip flexion to 90 deg, hip ER 10 deg L Short Term Goal (STG) Improve full pain free hip ROM without anterior hip pain or pinching STG Duration 4-6 weeks Public Works Director Goal (LTG) GOOD PROGRESS, DECREASED HIP PAIN AT END RANGES One Impairment left anterior hip pain that prevents walking more than 5- 10 minutes Public Works Director Goal (LTG) Juani reports overall decreased hip and groin pain and is able to return to her walks of 2-3 miles in length GOOD PROGRESS< WALKING GREATER THAN A MILE NOW LTG Duration 8 weeks Progress Towards Goals Progress Towards Goals Progressing Toward Goals Assessment Summary Assessment Juani has made good progess with physical therapy and her pain symptoms are much reduced. She is able to return to walking and is up to a little over a mile without pain. She would like to get to 2-3 miles. Treatment has focused on releasing the adductor spasm and improving posterior glide of the hip capsule. We have also focused on core stabilization and hip strengthening. She feels independent with her home exercise program and will work on her own for a few weeks and then recheck back in February. Physical Therapy Plan Frequency and Duration Frequency of Treatment 1x/Week Duration of Treatment 8 weeks Plan of Care Start Date 01/30/19 Plan of Care End Date 03/29/19 Therapeutic Interventions Therapeutic Interventions Home Exercise Program Joint Mobilizations Manual Therapy Neuromuscular Re-education Patient/Caregiver Education Self-Care/Home Management Soft Tissue Mobilization Therapeutic Activities Modalities Biofeedback Ultrasound Next Visit Focus/Plan Next Note Type Treatment Note Next Visit Plan Recheck hip ROM and strength next visit in February and revise HEP as needed Plan of Care Dates Plan of Care Start Date 01/30/19 Plan of Care End Date 03/29/19 Please Sign and Return: I have reviewed this Plan of Care and certify that the skilled therapy services above are required to meet the patient?s needs. Physician Signature Date Printed Name and Credentials Clinical Instructor Signature Printed Name and Credentials
--- NOTE | 2019-05-28 12:14 | PT.OPDS ---
Current Diagnoses Other specific joint derangements of left hip, not elsewhere classified (01/30/19) Pain in unspecified hip (01/30/19) Pelvic and perineal pain (01/30/19) Left lower quadrant pain (01/30/19) Visit Care Team Role Provider Type Marie Larios DO Primary Care Provider Non-Staff Specialty: Family Practice Address: [address] [place] [address] [address], [place], [phone] Email: Cat Bennett MD Attending Provider Physician Specialty: MUSEUM OR ZOO DIRECTOR Address: [address] [place] [address] [address], [place], [address] Email: [email or web address] Visit Number Visit Number 6 Discharge Summary PT-OP-B Current Condition Start: 12/20/18 13:47 Freq: Status: Active Protocol: Document 01/30/19 09:45 [facility] (Rec: 02/05/19 07:43 [facility] [email or web address]) Current Condition History of Current Condition Onset Date symptoms began a few years ago Current Complaints left sided groin and pelvic pain that limits walking History of Current Condition Juani reports her symptoms of left sided groin pain began a few years ago. She attributed her pain with a prolapsed bladder and rectum as she was having a great deal of pelvic pressure from this. She did undergo a anterior posterior repair a year ago and although the pelvic pressure has been reduced she is still feeling the groin pain. The pain will begin in her left anterior hip and then will actually progress to include pain behind her knee and she notes it feels like the circulation is being cut off into her lower leg. Her walking is very limited at this time as walking increases her symptoms. PT-OP-C Subjective Start: 12/20/18 13:47 Freq: Status: Active Protocol: Document 01/30/19 09:45 [facility] (Rec: 02/05/19 07:43 [facility] [email or web address]) OP-PT Subjective Patient Comments Patient Comments Juani reports she is doing much better now and is walking greater than a mile. Her pain in the left hip is decreased overall and she is doing her exercises at home. PT-OP-F Manual Assessment Start: 12/20/18 13:47 Freq: Status: Active Protocol: Document 12/18/18 10:30 [facility] (Rec: 12/20/18 14:30 [facility] [email or web address]) Manual Assessments Soft Tissue Assessment Soft Tissue Mobility Assessment tightness and spasm of the left adductors as compared to the right, tightness of the transverse perineum on the left Joint Mobility Assessment Joint Mobility Assessment decreased left hip capsule posterior and lateral glide, the hip is help in a anterior position creating hip impingement. Decreased hip ER on the left and pain with hip ER PT-OP-G Mobility & Gait Start: 12/20/18 13:47 Freq: Status: Active Protocol: Document 12/18/18 10:30 [facility] (Rec: 12/20/18 14:30 [facility] [email or web address]) OP Gait Assessment Gait Gait Assistance Required: Independent Able to Maintain Weight Bearing Status Yes During Gait Comments Gait Comments decreased hip flexion with heel strike, antalgic gait pattern with decreased Weight bearing on the left LE PT-OP-K Range of Motion Start: 12/20/18 13:47 Freq: Status: Active Protocol: Document 12/18/18 10:30 [facility] (Rec: 12/20/18 14:30 [facility] [email or web address]) Hip Goniometric Range of Motion Hip Left Hip ROM WFL No Testing Position Supine Flexion w/Knee Flexed 90 External Rotation 10 Hip ROM Limitations Hip ROM Limitations Soft Tissue Tightness,Bony Restriction,Pain Comments pain and impingement with hip flexion and with hip ER, decreased hip posterior glide PT-OP-M Strength Start: 12/20/18 13:47 Freq: Status: Active Protocol: Document 12/18/18 10:30 [facility] (Rec: 12/20/18 14:30 [facility] [email or web address]) Hip Strength Hip Manual Muscle Testing Left Flexion (L2) 3+ Fair+ Abduction 3 Fair External Rotation 3 Fair PT-OP-T Assessment and Plan Start: 12/20/18 13:47 Freq: Status: Active Protocol: Document 05/28/19 12:13 [facility] (Rec: 05/28/19 12:14 [facility] [email or web address]) Physical Therapy Plan Discharge Physical Therapy Discharge Reasons No Longer Attending PT Discharge Comments Juani has not been seen since her last progress reports in February 2019. She will be discharged at this time
== END 2019-01-30 10:45 ==
LOC: PHYS 09:45
PROVIDERS: PCP Family Medicine; Visit Provider Obstetrics & Gynecology
DX: R10.32 Left lower quadrant pain (principal); M25.559 Pain in unspecified hip; M24.852 Other specific joint derangements of left hip, not elsewhere classified; R10.2 Pelvic and perineal pain
CPT/HCPCS: 97035; 97110; 97140; 97161

== ENCOUNTER → 2019-07-31 10:44 | Outpatient (CLI) | payer MEDICARE, OTHER, SELFPAY ==
[2018-10-02 11:42] VITALS: BMI 26.2
--- NOTE | 2019-07-31 | DI.US.S_ITS ---
PROCEDURE: US CAROTID DOPPLER BI INDICATIONS: CAROTID ARTERIAL DISEASE TECHNIQUE: Color and pulse Doppler interrogation was performed of both carotid systems, with image documentation and velocity measurements. COMPARISON: None. FINDINGS: Stenosis calculations are based on SRU (Society of Radiologists in Ultrasound) criteria. Right side: Brachial blood pressure: -. Common carotid artery peak systolic velocity: 63 cm/sec. Internal carotid artery peak systolic velocity: 95 cm/sec. Internal carotid artery end diastolic velocity: 22 cm/sec. External carotid artery peak systolic velocity: 127 cm/sec. ICA/CCA peak systolic ratio: 1.5 to. Rosa scale imaging description: Mild echogenic plaques at the bifurcation Percent internal carotid artery stenosis: Less than 50%. Vertebral artery: Flow direction is antegrade. Left side: Brachial blood pressure: 147/73 mm Hg. Common carotid artery peak systolic velocity: 67 cm/sec. Internal carotid artery peak systolic velocity: 92 cm/sec. Internal carotid artery end diastolic velocity: 24 cm/sec. External carotid artery peak systolic velocity: 1.37 cm/sec. ICA/CCA peak systolic ratio: 1.37. Rosa scale imaging description: Echogenic plaques in the bifurcation Percent internal carotid artery stenosis: Less than 50%. Vertebral artery: Flow direction is antegrade. IMPRESSION: Less than 50% internal carotid artery stenosis bilaterally. Dictated by: Duy Anguiano M.D. on 07/31/2019 at 12:52 Approved by: Duy Anguiano M.D. on 07/31/2019 at 12:54
== END ==
PROVIDERS: PCP Family Medicine; Visit Provider Family Medicine
DX: I65.23 Occlusion and stenosis of bilateral carotid arteries (principal)
CPT/HCPCS: 93880

== ENCOUNTER 2020-01-04 12:19 | Emergency (ER) | payer MEDICARE, OTHER, SELFPAY ==
[2018-10-02 11:42] VITALS: BMI 26.2
[2020-01-04 12:31] VITALS: BP 155/70; PULSE 66; RESP 20; TEMP 36.9; O2SAT 97; BMI 27.1
--- NOTE | 2020-01-04 12:31 | DI.RAD.S_ITS ---
PROCEDURE: XR WRIST LT MIN 3V INDICATIONS: fell on her arm, wrist is deformed TECHNIQUE: 4 views of the wrist were acquired. COMPARISON: None. FINDINGS: Bones: Distal radial metaphyseal fracture, with mild impacted appearance. There is also ulnar styloid fracture, although radiographically age-indeterminate. No suspicious bony lesions. First CMC and triscaphe joint degeneration. Soft tissues: No suspicious soft tissue calcifications. IMPRESSION: Distal radial metaphyseal impacted fracture Ulnar styloid fracture which could be chronic or acute. Please correlate with point tenderness Dictated by: Jhonny Duarte M.D. on 01/04/2020 at 13:29 Approved by: Jhonny Duarte M.D. on 01/04/2020 at 13:31
--- NOTE | 2020-01-04 15:46 | DI.RAD.S_ITS ---
PROCEDURE: XR ELBOW LT MIN 3V INDICATIONS: pain sp fall TECHNIQUE: 3 views of the elbow were acquired. COMPARISON: None. FINDINGS: Bones: No fractures or dislocations. No suspicious bony lesions. Soft tissues: No elbow joint effusion. No suspicious soft tissue calcifications. IMPRESSION: No fracture or joint effusion found, mild degenerative osteoarthritis. Dictated by: Tyler Gómez M.D. on 01/04/2020 at 15:18 Approved by: Tyler Gómez M.D. on 01/04/2020 at 15:18
[2020-01-04 15:47] VITALS: BP 207/88; PULSE 61; RESP 18; O2SAT 99
[2020-01-04] MEDS: HYDROCODONE/ACET 5/325 TABLET 1 TAB PO (15:53)
[2020-01-04 18:19] VITALS: BP 180/78; PULSE 60; RESP 18; O2SAT 97
[2020-01-04 19:55] LABS: COVID19 -Nasal RAPID Negative (Negative)
--- NOTE | 2020-01-04 20:28 | ED_ITS ---
HPI - Extremity Injury (Upper) <JAY Castro-BC - Last Filed: 01/04/20 20:36> General Chief Complaint: Extremity Injury, Upper Stated Complaint: Fell this morning. Time Seen by Provider: 01/04/20 15:36 Source: patient Mode of arrival: Family Vehicle Limitations: no limitations History of Present Illness HPI narrative: The patient is a 79-year-old female nonsmoker with history of recent leg stent who presents with a chief complaint of left wrist pain. She tripped and fell over a curb she complains of left wrist pain believes it is broken as there is a cracking sound. She thinks she may have fractured as a child. She did not hit her head, she did not she did not hit her neck or her back. She denies any other pain. She does not take blood thinners. She does take a baby aspirin. Related Data Home Medications Medication Instructions Recorded Confirmed bupropion HCl 150 mg PO DAILY 10/03/18 02/20/19 citalopram 40 mg PO DAILY 10/03/18 02/20/19 Previous Rx's Medication Instructions Recorded hydrocodone-acetaminophen [[place]] 1 tab PO Q4-6H PRN #10 tab 01/04/20 Allergies Allergy/AdvReac Type Severity Reaction Status Date / Time elaina Allergy Intermediate lip and Verified 01/04/20 12:37 mouth swellling papaya Allergy Intermediate lip and Verified 01/04/20 12:37 mouth swelling Sulfa (Sulfonamide Allergy Intermediate lips and Verified 01/04/20 12:37 Antibiotics) mouth swelling latex [LATEX] Allergy Unknown Rash Verified 01/04/20 12:37 morphine [MORPHINE] Allergy Unknown Hallucinati Verified 01/04/20 12:37 ng Review of Systems <DAVE CastroBC - Last Filed: 01/04/20 20:36> Review of Systems Narrative: GENERAL: Denies chills, fatigue, malaise, fever, sweats. HEENT: Denies sinus pain, ear pain, sore throat, difficulty swallowing, dizziness. RESPIRATORY: Denies dyspnea, cough, wheezing, hemoptysis, sputum. CARDIOVASCULAR: Denies chest pain, palpitations, orthopnea, edema, GASTROINTESTINAL: Denies nausea, vomiting, abdominal pain, diarrhea, constipation, melena. : Denies dysuria, frequency, incontinence, hematuria, urinary retention. MUSCULOSKELETAL: See HPI SKIN: Denies rash, skin lesions, or other NEUROLOGIC: Denies weakness, headache, numbness, change in speech, confusion, seizures, incoordination. PSYCHIATRIC: No concerning psychosocial issues. 12 point review of systems is negative except for those stated above Patient History <ROBBY Castro - Last Filed: 01/04/20 20:36> Medical History Breast cancer, left (Acute) Cystocele with rectocele (Acute) Surgical History History of vaginal hysterectomy (Acute) Status post left breast lumpectomy (Acute) Status post surgery (Acute 10/02/18) Social History household members: none Smoking Status: Never smoker alcohol intake: current Smoking Status: Never smoker alcohol intake frequency: 0-2 drinks per day Substance Use Type: does not use Exam <ROBBY Castro - Last Filed: 01/04/20 20:36> Narrative Exam Narrative: GENERAL: This is a well-nourished, well-developed patient, in no acute distress HEAD: Atraumatic. Normocephalic. No temporal or scalp tenderness. EYES: Pupils equal round and reactive. Extraocular motions intact. No scleral icterus. No injection or drainage. ENT: Nose without bleeding, purulent drainage or septal hematoma. Throat without erythema, tonsillar hypertrophy or exudate. Uvula midline. Airway patent. NECK: Trachea midline. No JVD or lymphadenopathy. Supple, nontender, no meningeal signs. CARDIOVASCULAR: Regular rate and rhythm RESPIRATORY: Clear to auscultation. Breath sounds equal bilaterally. No wheezes, rales, or rhonchi. No cough. No increased respiratory effort. No accessory muscle use. GASTROINTESTINAL: Abdomen soft, non-tender, nondistended. No hepato- splenomegaly, or palpable masses. No guarding. EXTREMITIES: Patient has chronically flexed left fingers. Capillary refill less than 2 seconds. Positive left radial pulse. Wiggling of all fingers of left hand. Knee pain and swelling palpation of left wrist and elbow. BACK: Nontender without deformity or crepitance. No flank tenderness. NEURO: AOx3. SKIN: No rash or erythema on visible skin. Abrasion noted on left elbow Initial Vital Signs Initial Vital Signs: Vital Signs Temperature 98.4 F 01/04/20 12:31 Pulse Rate 66 01/04/20 12:31 Respiratory Rate 01/04/20 12:31 Blood Pressure 155/70 H 01/04/20 12:31 Pulse Oximetry 97 01/04/20 12:31 <Bill Aguillon MD - Last Filed: 01/04/20 21:45> Initial Vital Signs Initial Vital Signs: Vital Signs Temperature 98.4 F 01/04/20 12:31 Pulse Rate 66 01/04/20 12:31 Respiratory Rate 01/04/20 12:31 Blood Pressure 155/70 H 01/04/20 12:31 Pulse Oximetry 97 01/04/20 12:31 Procedures <ROBBY Castro - Last Filed: 01/04/20 20:36> Orthopedic Splinting/Casting Injury #1: Side: left Upper Extremity Injury Location: wrist Upper Extremity Immobilizer: sling/shoulder immobilizer and sugar tong splint Post splinting neuro exam: intact Post splinting vascular exam: intact Placed by: Nursing Scores <ROBBY Castro - Last Filed: 01/04/20 20:36> GCS Bloomery coma scale eye opening: Spontaneous Bloom[place] coma scale verbal response: Orientated Shin coma scale motor response: Obey commands Bloomery coma scale total score: 15 Nexus Score for C-Spine Focal Neurologic deficit present: No Midline spinal tenderness present: No Altered level of conciousness present: No Intoxication present: No Distracting Injury Present: No Nexus Criteria for C-spine: 0 Course <ROBBY Castro - Last Filed: 01/04/20 20:36> Orders Ordered: ED Orders 01/04/20 15:46 XR elbow LT min 3V Stat Discontinued Medications Hydrocodone Bitart/Acetaminophen ([place] 5/325) 1 tab PO NOW ONE Stop: 01/04/20 15:47 Last Admin: 01/04/20 15:53 Dose: 1 tab Documented by: SOHAM Vital Signs Vital signs: Vital Signs - 8 hr 01/04/20 15:47 01/04/20 18:19 Pulse Rate 61 60 Respiratory Rate 18 18 Blood Pressure 180/78 H Blood Pressure [Right Arm] 207/88 H Pulse Oximetry 99 97 <Bill Aguillon MD - Last Filed: 01/04/20 21:45> Orders Ordered: ED Orders 01/04/20 15:46 XR elbow LT min 3V Stat Discontinued Medications Hydrocodone Bitart/Acetaminophen ([place] 5/325) 1 tab PO NOW ONE Stop: 01/04/20 15:47 Last Admin: 01/04/20 15:53 Dose: 1 tab Documented by: SOHAM Vital Signs Vital signs: Vital Signs - 8 hr 01/04/20 15:47 01/04/20 18:19 Pulse Rate 61 60 Respiratory Rate 18 18 Blood Pressure 180/78 H Blood Pressure [Right Arm] 207/88 H Pulse Oximetry 99 97 MDM - Extremity Injury (Upper) <ROBBY Castro - Last Filed: 01/04/20 20:36> Lab Data Labs: Lab Results 01/04/20 Range/Units 18:05 COVID-19 PCR Negative (Negative) Imaging Data Extremity x-ray #1: Radiologist's Impression: [facility] [address] [place] [id number] XRay Report Signed Patient: Debbie SantosdMR#: [id number] : 1940Acct:[id number] Age/Sex: 79 / FDate of Service: 01/04/20 Loc: ED Accession Number: [id number] Procedure: XR wrist LT min 3V Ordering Provider: Nory Gutierres PROCEDURE: XR WRIST LT MIN 3V INDICATIONS: fell on her arm, wrist is deformed TECHNIQUE: 4 views of the wrist were acquired. COMPARISON: None. FINDINGS: Bones: Distal radial metaphyseal fracture, with mild impacted appearance. There is also ulnar styloid fracture, although radiographically age-indeterminate. No suspicious bony lesions. First CMC and triscaphe joint degeneration. Soft tissues: No suspicious soft tissue calcifications. IMPRESSION: Distal radial metaphyseal impacted fracture Ulnar styloid fracture which could be chronic or acute. Please correlate with point tenderness Dictated by: Jhonny Duarte M.D. on 01/04/2020 at 13:29 Approved by: Jhonny Duarte M.D. on 01/04/2020 at 13:31 Extremity x-ray #2: Radiologist's Impression: [address] [place] [id number] XRay Report Signed Patient: Debbie SantosdMR#: [id number] : 1940Acct:[id number] Age/Sex: 79 / FDate of Service: 01/04/20 Loc: ED Accession Number: [id number] Procedure: XR elbow LT min 3V Ordering Provider: Nory Gutierres FLOORS BUFFER- PROCEDURE: XR ELBOW LT MIN 3V INDICATIONS: pain sp fall TECHNIQUE: 3 views of the elbow were acquired. COMPARISON: None. FINDINGS: Bones: No fractures or dislocations. No suspicious bony lesions. Soft tissues: No elbow joint effusion. No suspicious soft tissue calcifications. IMPRESSION: No fracture or joint effusion found, mild degenerative osteoarthritis. Dictated by: Tyler Gómez M.D. on 01/04/2020 at 15:18 Approved by: Tyler Gómez M.D. on 01/04/2020 at 15:18 [facility] Narrative Medical decision making narrative: The patient is a delightful 79-year-old female who presents after a mechanical ground level fall with a distal radial fracture possible acute versus chronic ulnar styloid fracture. She is tender to palpation, so I believe it is acute. The patient is neurovascularly intact, does not have any other injuries. I spoke with Dr. Unger from [facility], who kindly viewed the patient's films. The patient was placed in a sugar-tong as per Dr. Unger's recommendations. She felt much improved after the above-stated pain medication and I gave her small prescription. She states she tolerates [place] even though she is allergic to morphine. I discussed at length the importance of following up with Dr. Unger as arranged. Dr. Unger given patient's contact information. Discussed at length coming back to the emergency department for any acute concerns such as decreased circulation her hand. Patient has no questions or concerns upon discharge and states understanding of follow-up care as well as return precautions. Patient was tested for covid19 as [address] Dr. Unger's recommendations for possible preop. <Bill Aguillon MD - Last Filed: 01/04/20 21:45> Lab Data Labs: Lab Results 01/04/20 Range/Units 18:05 COVID-19 PCR Negative (Negative) Discharge Plan Departure Patient Disposition: Home Clinical Impression: Fall from ground level Distal radius fracture Qualifiers: Encounter type: initial encounter Fracture type: closed Fracture morphology: other fracture Laterality: left Qualified Code(s): S52.592A - Other fractures of lower end of left radius, initial encounter for closed fracture Fracture of ulnar styloid Qualifiers: Encounter type: initial encounter Fracture type: closed Fracture alignment: nondisplaced Laterality: left Qualified Code(s): S52.615A - Nondisplaced fracture of left ulna styloid process, initial encounter for closed fracture Discharge Date/Time: 01/04/20 18:20 Instructions: How to Use a Sling, DI for Wrist Fracture, How to Take Care of Your Splint, DI for Distal Radius Fracture Activity Restrictions/Additional Instructions: Thank you for trusting us with your care today As I discussed, you broke your left wrist Please use rest ice compression elevation. Please expect to hear from Dr. Unger from [facility] on Tuesday. You do not hear from her, please contact her at the office. I have included the contact information below [facility] [place] [facility] [place] I have given you a prescription of a narcotic for pain. Be aware that this can be constipating and sedating. I encouraged taking with a stool softener, pushing fluids and fiber. Do not take and drive, operate heavy machinery, etc. Do not combine it with any other sedating substances such as alcohol. The combination of narcotics and alcohol and/or other sedatives can be lethal. Please come back to the emergency department for any acute concerns Prescriptions: New hydrocodone-acetaminophen [[place]] 5-325 mg tablet 1 tab PO Q4-6H PRN (Reason: pain) Qty: 10 RF: 0 No Action bupropion HCl 150 mg tablet sustained-release 12 hr 150 mg PO DAILY RF: 0 citalopram 40 mg tablet 40 mg PO DAILY RF: 0 Referrals: [facility] [Provider Group] Marie Larios DO [Primary Care Provider] - Brigid Unger MD [Physician] -
== END 2020-01-04 18:20 | disposition home or self-care (01) ==
PROVIDERS: Emergency Provider Nurse Practitioner Family; PCP Family Medicine
DX: S52.592A Other fractures of lower end of left radius, initial encounter for closed fracture (principal); S52.615A Nondisplaced fracture of left ulna styloid process, initial encounter for closed fracture; W18.30XA Fall on same level, unspecified, initial encounter
CPT/HCPCS: 29105; 73080; 73110; 87635; 99283; 99284

== ENCOUNTER 2020-01-30 11:45 | Emergency (ER) | payer MEDICARE, OTHER, SELFPAY ==
[2018-10-02 11:42] VITALS: BMI 26.2
[2020-01-30] VITALS (38 sets, daily range): BP systolic 86–218; BP diastolic 53–101; PULSE 53–66; RESP 7–33; TEMP 37.2; O2SAT 96–99; BMI 20.9
--- NOTE | 2020-01-30 12:19 | DI.RAD.S_ITS ---
PROCEDURE: XR CHEST 1V INDICATIONS: Possible stroke TECHNIQUE: One view of the chest was acquired. COMPARISON: [facility], , CHEST 1 VIEW, 06/20/2017, 18:47. FINDINGS: Surgical changes and devices: None. Lungs and pleura: Lungs are clear. No pleural effusions or pneumothorax. Mediastinum: Mediastinal contours appear normal. Heart size is normal. Bones and chest wall: No suspicious bony lesions. Overlying soft tissues appear unremarkable. IMPRESSION: No acute cardiopulmonary findings. Dictated by: Keiry Boykin M.D. on 01/30/2020 at 12:53 Approved by: Keiry Boykin M.D. on 01/30/2020 at 12:54
--- NOTE | 2020-01-30 12:28 | DI.CT.S_ITS ---
PROCEDURE: CT HEAD/BRAIN WO CON INDICATIONS: headache and difficulty finding words since last night TECHNIQUE: Noncontrast 4.5 mm thick angled axial sections acquired from the foramen magnum to the vertex, with coronal and sagittal reformats. For radiation dose reduction, the following was used: automated exposure control, adjustment of mA and/or kV according to patient size. COMPARISON: None. FINDINGS: Image quality: Excellent. CSF spaces: Basal cisterns are patent. No extra-axial fluid collections. The ventricles are symmetric in size and shape. Brain: There is cerebral volume loss for age, with resultant ventricular and sulcal prominence. An ill-defined hypodense 1.2 cm in diameter focus is present within the right parietal occipital lobe (series 2/image 16 and series 5/image 30 and series 4/image 9). A punctate hyperdense focus is present centrally. No other suspicious hypodense lesions. There are periventricular and deep white matter chronic small vessel ischemic changes. There is intracranial internal carotid artery atherosclerosis. Skull and face: Calvarium and visualized facial bones appear intact, without suspicious lesions. Sinuses: Visualized sinuses and mastoids are clear. IMPRESSION: 1. Hypodense focus within the right parieto-occipital region with a punctate hyperdense focus centrally. Differential considerations include a small region of infarct, likely subacute or early chronic in nature. Alternatively, a small mass could be considered in the differential. Of note, there is no surrounding vasogenic edema or sulcal effacement to suggest mass effect. No prior comparisons are available. Further characterization with brain MRI with and without contrast would be helpful to further elucidate this finding. This finding was discussed with On January 30, 2020.Ric at 12:49 p.m. Dictated by: Keiry Boykin M.D. on 01/30/2020 at 12:42 Approved by: Keiry Boykin M.D. on 01/30/2020 at 12:53
--- NOTE | 2020-01-30 12:36 | PC.NURSE ---
Pt having difficulty finding the words she wants to use,no slurring but expressive aphasia
[2020-01-30 12:37] LABS: Add Manual Diff / Slide Review NO; Basophils Absolute Auto 100 /uL (0-100); Basophils Percent Auto 0.9 % (0-2); Eosinophils Absolute Auto 100 /uL (0-450); Eosinophils Percent Auto 2.2 % (2-4); Hematocrit 40.9 % (36-46); Hemoglobin 13.9 g/dL (12.0-16.0); Lymphocytes Absolute Auto 1300 /uL (1100-4500); Lymphocytes Percent Auto 21.4 % (25-40); Mean Corpuscular HGB Conc 34.1 % (30-36); Mean Corpuscular Hemoglobin 30.2 PG (26-34); Mean Corpuscular Volume 88.6 fL (80-100); Monocytes Absolute Auto 400 /uL (0-900); Monocytes Percent Auto 6.6 % (3-14); Neutrophils Absolute Auto 4200 /uL (1500-7000); Neutrophils Percent Auto 68.9 % (50-75); Platelet Count 181 X10^3/uL (150-400); Red Blood Cell Count 4.61 X10^6/uL (4.0-5.2); Red Cell Distribution Width 13.9 % (11.6-14.8); White Blood Cell Count 6.1 X10^3/uL (4.5-11.0)
[2020-01-30 12:38] LABS: Prothrombin Time 11.6 SECONDS (10.1-12.7)
[2020-01-30 12:41] LABS: PTT Partial Thromboplastin Tim 28 SECONDS (26.4-36.2)
[2020-01-30 12:43] LABS: Albumin 3.8 g/dL (3.5-5.0); Albumin Globulin Ratio 1.5 (1.0-2.8); Alkaline Phosphatase 125 U/L (38-126); BUN Creatinine Ratio 24.6 (6-22); Bilirubin Total 1.4 mg/dL (0.2-1.3); Blood Urea Nitrogen 14 mg/dL (7-17); Calcium 9.4 mg/dL (8.4-10.2); Carbon Dioxide 26 mmol/L (22-32); Chloride 106 mmol/L (98-107); Creatine Kinase 55 U/L (30-135); Estimated Glomerular Filt Rate > 60.0 mL/min (>60); Globulin 2.5 g/dL (1.7-4.1); Glucose 144 mg/dL (80-110); Sodium 136 mmol/L (137-145); Total Protein 6.3 g/dL (6.3-8.2)
[2020-01-30 12:45] LABS: Aspartate Aminotransferase 47 IU/L (14-36); Potassium 4.4 mmol/L (3.4-5.1)
[2020-01-30 12:53] LABS: Troponin I < 0.012 ng/mL (0.01-0.034)
[2020-01-30 12:57] LABS: Alanine Aminotransferase 44 IU/L (<35); HEMOLYSIS 53 (0-50)
--- NOTE | 2020-01-30 13:04 | ED.HA ---
HPI - Headache <Avery Larios MD - Last Filed: 02/13/20 07:15> General Chief Complaint: Headache Stated Complaint: dizziness,pain in her head Time Seen by Provider: 01/30/20 12:28 Source: patient and other (friend) Mode of arrival: Ambulatory Limitations: no limitations History of Present Illness HPI Narrative: Patient here complaints of headache and expressive aphasia started 4:00 p.m. yesterday. Started with trouble finding her words. She knew what she wanted to say but could not get the right words. Headache started later. The symptoms have been persistent. No slurred speech facial droop. No numbness tingling or weakness. Patient did have recent left wrist surgery for fractured distal radius on the left side. Orthopedic surgeon in [place] Dr. jenelle Thacker [facility] in [place]. Phone number [phone]. No nausea or vomiting. Patient struggles to find words on questioning. No prior history of stroke. Took ibuprofen last night for headache. No medications for her headache today. MD Complaint: headache Related Data Home Medications Medication Instructions Recorded Confirmed bupropion HCl 150 mg PO DAILY 10/03/18 02/20/19 citalopram 40 mg PO DAILY 10/03/18 02/20/19 Previous Rx's Medication Instructions Recorded hydrocodone-acetaminophen [Flushing] 1 tab PO Q4-6H PRN #10 tab 01/04/20 Allergies Allergy/AdvReac Type Severity Reaction Status Date / Time elaina Allergy Intermediate lip and Verified 01/30/20 12:05 mouth swellling papaya Allergy Intermediate lip and Verified 01/30/20 12:05 mouth swelling Sulfa (Sulfonamide Allergy Intermediate lips and Verified 01/30/20 12:05 Antibiotics) mouth swelling latex [LATEX] Allergy Unknown Rash Verified 01/30/20 12:05 morphine [MORPHINE] Allergy Unknown Hallucinati Verified 01/30/20 12:05 ng Review of Systems <Avery Larios MD - Last Filed: 02/13/20 07:15> Review of Systems Narrative: GENERAL: Denies chills, fatigue, malaise, fever, sweats. HEENT: Denies sinus pain, ear pain, sore throat, difficulty swallowing, dizziness. RESPIRATORY: Denies dyspnea, cough, wheezing, hemoptysis, sputum. CARDIOVASCULAR: Denies chest pain, palpitations, orthopnea, edema, GASTROINTESTINAL: Denies nausea, vomiting, abdominal pain, diarrhea, constipation, melena. : Denies dysuria, frequency, incontinence, hematuria, urinary retention. MUSCULOSKELETAL: denies weakness, joint pain, or bony pain SKIN: Denies rash, skin lesions, or other NEUROLOGIC: Denies weakness, numbness, confusion, seizures, incoordination. Complains of expressive aphasia PSYCHIATRIC: No concerning psychosocial issues. ROS Unobtainable: All systems reviewed & are unremarkable except as noted in HPI and below Patient History <Avery Larios MD - Last Filed: 02/13/20 07:15> Medical History Breast cancer, left (Acute) Cystocele with rectocele (Acute) Surgical History History of vaginal hysterectomy (Acute) Status post left breast lumpectomy (Acute) Status post surgery (Acute 10/02/18) Social History household members: none Smoking Status: Never smoker alcohol intake: current Smoking Status: Never smoker alcohol intake frequency: 0-2 drinks per day Substance Use Type: does not use Exam <Avery Larios MD - Last Filed: 02/13/20 07:15> Narrative Exam Narrative: GENERAL: patient appears stated age. Well-nourished, well-developed patient, in no distress, not toxic HEAD: Atraumatic. Normocephalic. EYES: Pupils equal round and reactive. Extraocular motions intact. No scleral icterus. No injection or drainage. ENT: Nose without bleeding, purulent drainage. Throat without erythema, tonsillar hypertrophy or exudate. Airway patent. NECK: Trachea midline. Non tender no carotid bruit CARDIOVASCULAR: Regular rate and rhythm without murmurs, gallops, or rubs. RESPIRATORY: Clear to auscultation. Breath sounds equal bilaterally. No wheezes, rales, or rhonchi. GASTROINTESTINAL: Abdomen soft, non-tender, nondistended. EXTREMITIES: No edema or joint tenderness. BACK: Nontender without deformity or crepitance. No flank tenderness. NEURO: AOx3. Clear speech no facial droop light touch intact to bilateral face hands, left hand in partial cast, light touch intact to bilateral legs. Strong right acidizer water well. Does have expressive aphasia SKIN: No rash or erythema of visible areas PSYCH: Not anxious, is cooperative Initial Vital Signs Initial Vital Signs: Vital Signs Temperature 99.0 F 01/30/20 11:55 Pulse Rate 66 01/30/20 11:55 Respiratory Rate 16 01/30/20 11:55 Blood Pressure 198/85 H 01/30/20 11:55 Pulse Oximetry 98 01/30/20 11:55 <Chip Strickland DO - Last Filed: 01/31/20 03:27> Initial Vital Signs Initial Vital Signs: Vital Signs Temperature 99.0 F 01/30/20 11:55 Pulse Rate 66 01/30/20 11:55 Respiratory Rate 16 01/30/20 11:55 Blood Pressure 198/85 H 01/30/20 11:55 Pulse Oximetry 98 01/30/20 11:55 Scores <Avery Larios MD - Last Filed: 02/13/20 07:15> NIH Stroke Scale Level of Conciousness: Alert, keenly responsive Ask month/age: Answers both questions correctly. Open/close eyes, close hand: Performs both tasks correctly Best gaze horizontal: Normal Visual claudio: No visual loss Facial palsy: Normal symetrical movement Left arm drift: No drift for full 10 sec Right arm drift: No drift for full 10 sec Left leg drift: No drift for full 10 sec Right leg drift: No drift for full 10 sec Limb ataxia: Absent Sensory on face/arms/legs: Normal, no sensory loss Best language: Mild to moderate, slurs some words Dysarthria: Normal Extinction or inattention: No abnormality Total NIH Stroke scale score: 1 Course <Avery Larios MD - Last Filed: 02/13/20 07:15> Orders Ordered: Discontinued Medications Acetaminophen (Tylenol) 650 mg PO NOW ONE Stop: 01/30/20 13:12 Last Admin: 01/30/20 13:34 Dose: 650 mg Documented by: [email or web address] Acetaminophen (Tylenol) 650 mg PO NOW ONE Stop: 01/31/20 01:03 Last Admin: 01/31/20 01:05 Dose: 650 mg Documented by: SCANAPO Clonidine HCl (Catapres) 0.1 mg PO NOW ONE Stop: 01/30/20 15:23 Last Admin: 01/30/20 15:35 Dose: 0.1 mg Documented by: BTONER Nicardipine HCl 25 mg/ Sodium (Chloride) 250 mls @ 50 mls/hr IV TITRATE JIHAN; Protocol Last Admin: 01/31/20 03:16 Dose: 5 mg/hr, 50 mls/hr Documented by: BRIDGETTE Ondansetron HCl (Zofran) 4 mg IV NOW ONE Stop: 01/31/20 03:36 Last Admin: 01/31/20 03:35 Dose: 4 mg Documented by: BRIDGETTE Consultations Consultation #1: Spoke with radiologist at 12:51 p.m.. Right parietal occipital there is a round area with hypo and hyperdense, mass versus bleed/infarct. Prefer MRI with and without if possible. Otherwise CTA brain and neck. Patient did recently have her left wrist surgery. Time 1:20 p.m.. No aspirin at this time. Possible head bleed Time: 12:51 Consultation #2: Spoke with orthopedist Dr. Unger, patient may have MRI Time: 13:18 Consultation #3: Spoke with Dr. Ferrari, stroke team on-call for [facility]. Agrees with plan at this time. Awaiting for results of MRI Time: 14:31 Vital Signs Vital signs: Vital Signs - 8 hr 01/30/20 19:30 01/30/20 19:45 01/30/20 19:46 Pulse Rate 55 L 56 L 57 L Respiratory Rate 33 H Blood Pressure 186/79 H Pulse Oximetry 98 98 99 01/30/20 20:00 01/30/20 20:30 01/30/20 21:00 Pulse Rate 56 L 59 L 62 Respiratory Rate 20 20 21 Blood Pressure Pulse Oximetry 98 99 98 01/30/20 21:18 01/30/20 21:30 01/30/20 22:00 Pulse Rate 60 59 L 58 L Respiratory Rate 19 17 15 Blood Pressure 153/75 H Pulse Oximetry 99 97 97 01/31/20 00:58 Pulse Rate 58 L Respiratory Rate 13 Blood Pressure 196/83 H Pulse Oximetry 97 <Chip Strickland DO - Last Filed: 01/31/20 03:27> Course Course Narrative: Patient received in sign-out from other provider at the end of their shift. I have performed an independent history and physical and have no significant additional findings. Still awaiting call back from Neurology at [facility] Dr. Schmid (neurology at [facility]) has now been able to review images and states patient can come to neuro tele, but requests hospitalist admission. Hospitalist has called back and happy to accept. Awaiting bed assignment Patient transport here, will take to [facility] Orders Ordered: Discontinued Medications Acetaminophen (Tylenol) 650 mg PO NOW ONE Stop: 01/30/20 13:12 Last Admin: 01/30/20 13:34 Dose: 650 mg Documented by: BTONEJesse Acetaminophen (Tylenol) 650 mg PO NOW ONE Stop: 01/31/20 01:03 Last Admin: 01/31/20 01:05 Dose: 650 mg Documented by: SCANAPO Clonidine HCl (Catapres) 0.1 mg PO NOW ONE Stop: 01/30/20 15:23 Last Admin: 01/30/20 15:35 Dose: 0.1 mg Documented by: JAYASHREEONEJesse Nicardipine HCl 25 mg/ Sodium (Chloride) 250 mls @ 50 mls/hr IV TITRATE JIHAN; Protocol Last Admin: 01/31/20 03:16 Dose: 5 mg/hr, 50 mls/hr Documented by: MMCFARWhitley Ondansetron HCl (Zofran) 4 mg IV NOW ONE Stop: 01/31/20 03:36 Last Admin: 01/31/20 03:35 Dose: 4 mg Documented by: [email or web address] Vital Signs Vital signs: Vital Signs - 8 hr 01/30/20 19:30 01/30/20 19:45 01/30/20 19:46 Pulse Rate 55 L 56 L 57 L Respiratory Rate 33 H Blood Pressure 186/79 H Pulse Oximetry 98 98 99 01/30/20 20:00 01/30/20 20:30 01/30/20 21:00 Pulse Rate 56 L 59 L 62 Respiratory Rate 20 20 21 Blood Pressure Pulse Oximetry 98 99 98 01/30/20 21:18 01/30/20 21:30 01/30/20 22:00 Pulse Rate 60 59 L 58 L Respiratory Rate 19 17 15 Blood Pressure 153/75 H Pulse Oximetry 99 97 97 01/31/20 00:58 Pulse Rate 58 L Respiratory Rate 13 Blood Pressure 196/83 H Pulse Oximetry 97 MDM - Headache <Avery Larios MD - Last Filed: 02/13/20 07:15> Lab Data Result diagrams: 01/30/20 12:23 01/30/20 12:23 Labs: Lab Results 01/30/20 01/30/20 01/30/20 Range/Units 12:23 12:23 12:23 WBC 6.1 (4.5-11.0) X10^3/uL RBC 4.61 (4.0-5.2) X10^6/uL Hgb 13.9 (12.0-16.0) g/dL Hct 40.9 (36-46) % MCV 88.6 (80-100) fL MCH 30.2 (26-34) PG MCHC 34.1 (30-36) % RDW 13.9 (11.6-14.8) % Plt Count 181 (150-400) X10^3/uL Neut % (Auto) 68.9 (50-75) % Lymph % (Auto) 21.4 L (25-40) % [place] % (Auto) 6.6 (3-14) % Eos % (Auto) 2.2 (2-4) % Baso % (Auto) 0.9 (0-2) % Neut # (Auto) 4200 (5602-1447) /uL Lymph # (Auto) 1300 (4743-0339) /uL [place] # (Auto) 400 (0-900) /uL Eos # (Auto) 100 (0-450) /uL Baso # (Auto) 100 (0-100) /uL PT 11.6 (10.1-12.7) SECONDS INR 1.0 (0.9-1.3) APTT 28 (26.4-36.2) SECONDS Sodium 136 L (137-145) mmol/L Potassium 4.4 (3.4-5.1) mmol/L Chloride 106 (98-107) mmol/L Carbon Dioxide 26 (22-32) mmol/L BUN 14 (7-17) mg/dL Creatinine 0.57 (0.52-1.04) mg/dL Estimated GFR > 60.0 (>60) mL/min BUN/Creatinine Ratio 24.6 H (6-22) Glucose 144 H (80-110) mg/dL Calcium 9.4 (8.4-10.2) mg/dL Total Bilirubin 1.4 H (0.2-1.3) mg/dL AST 47 H (14-36) IU/L ALT 44 H (<35) IU/L Alkaline Phosphatase 125 (38-126) U/L Total Creatine Kinase 55 (30-135) U/L CK-MB (CK-2) TNP CK-MB (CK-2) Rel Index TNP Troponin I < 0.012 (0.01-0.034) ng/mL Total Protein 6.3 (6.3-8.2) g/dL Albumin 3.8 (3.5-5.0) g/dL Globulin 2.5 (1.7-4.1) g/dL Albumin/Globulin Ratio 1.5 (1.0-2.8) U Opiates 300ng/mL cut (Negative) Ur Oxycodone Screen (Negative) Urine Methadone Screen (Negative) Ur Barbiturates Screen (Negative) U Tricyclic Antidepress (Negative) Ur Phencyclidine Scrn (Negative) Ur Amphetamines Screen (Negative) U Methamphetamines Scrn (Negative) Ur MDMA Scrn (Ecstasy) (Negative) U Benzodiazepines Scrn (Negative) Urine Cocaine Screen (Negative) U Marijuana (THC) Screen (Negative) 01/30/20 Range/Units 14:10 WBC (4.5-11.0) X10^3/uL RBC (4.0-5.2) X10^6/uL Hgb (12.0-16.0) g/dL Hct (36-46) % MCV (80-100) fL MCH (26-34) PG MCHC (30-36) % RDW (11.6-14.8) % Plt Count (150-400) X10^3/uL Neut % (Auto) (50-75) % Lymph % (Auto) (25-40) % [place] % (Auto) (3-14) % Eos % (Auto) (2-4) % Baso % (Auto) (0-2) % Neut # (Auto) (1061-9960) /uL Lymph # (Auto) (9638-1409) /uL [place] # (Auto) (0-900) /uL Eos # (Auto) (0-450) /uL Baso # (Auto) (0-100) /uL PT (10.1-12.7) SECONDS INR (0.9-1.3) APTT (26.4-36.2) SECONDS Sodium (137-145) mmol/L Potassium (3.4-5.1) mmol/L Chloride (98-107) mmol/L Carbon Dioxide (22-32) mmol/L BUN (7-17) mg/dL Creatinine (0.52-1.04) mg/dL Estimated GFR (>60) mL/min BUN/Creatinine Ratio (6-22) Glucose (80-110) mg/dL Calcium (8.4-10.2) mg/dL Total Bilirubin (0.2-1.3) mg/dL AST (14-36) IU/L ALT (<35) IU/L Alkaline Phosphatase (38-126) U/L Total Creatine Kinase (30-135) U/L CK-MB (CK-2) CK-MB (CK-2) Rel Index Troponin I (0.01-0.034) ng/mL Total Protein (6.3-8.2) g/dL Albumin (3.5-5.0) g/dL Globulin (1.7-4.1) g/dL Albumin/Globulin Ratio (1.0-2.8) U Opiates 300ng/mL cut Negative (Negative) Ur Oxycodone Screen Negative (Negative) Urine Methadone Screen Negative (Negative) Ur Barbiturates Screen Negative (Negative) U Tricyclic Antidepress Negative (Negative) Ur Phencyclidine Scrn Negative (Negative) Ur Amphetamines Screen Negative (Negative) U Methamphetamines Scrn Negative (Negative) Ur MDMA Scrn (Ecstasy) Negative (Negative) U Benzodiazepines Scrn Negative (Negative) Urine Cocaine Screen Negative (Negative) U Marijuana (THC) Screen Negative (Negative) Point of Care Testing Glucose POC [address] scan - head: Radiologist's Impression: [address] [address] [address] Scan Report Signed Patient: Debbie SantosBonnie#: [id number] : 1940Acct:[id number] Age/Sex: 79 / FDate of Service: 01/30/20 Loc: ED Accession Number: [id number] Procedure: CT head/brain wo con Ordering Provider: Avery Larios MD PROCEDURE: CT HEAD/BRAIN WO CON INDICATIONS: headache and difficulty finding words since last night TECHNIQUE: Noncontrast 4.5 mm thick angled axial sections acquired from the foramen magnum to the vertex, with coronal and sagittal reformats. For radiation dose reduction, the following was used: automated exposure control, adjustment of mA and/or kV according to patient size. COMPARISON: None. FINDINGS: Image quality: Excellent. CSF spaces: Basal cisterns are patent. No extra-axial fluid collections. The ventricles are symmetric in size and shape. Brain: There is cerebral volume loss for age, with resultant ventricular and sulcal prominence. An ill-defined hypodense 1.2 cm in diameter focus is present within the right parietal occipital lobe (series 2/image 16 and series 5/image 30 and series 4/image 9). A punctate hyperdense focus is present centrally. No other suspicious hypodense lesions. There are periventricular and deep white matter chronic small vessel ischemic changes. There is intracranial internal carotid artery atherosclerosis. Skull and face: Calvarium and visualized facial bones appear intact, without suspicious lesions. Sinuses: Visualized sinuses and mastoids are clear. IMPRESSION: 1. Hypodense focus within the right parieto-occipital region with a punctate hyperdense focus centrally. Differential considerations include a small region of infarct, likely subacute or early chronic in nature. Alternatively, a small mass could be considered in the differential. Of note, there is no surrounding vasogenic edema or sulcal effacement to suggest mass effect. No prior comparisons are available. Further characterization with brain MRI with and without contrast would be helpful to further elucidate this finding. This finding was discussed with On January 30, 2020.Ric at 12:49 p.m. Dictated by: Keiry Boykin M.D. on 01/30/2020 at 12:42 Approved by: Keiry Boykin M.D. on 01/30/2020 at 12:53 Chest x-ray: Radiologist's Impression: [address] [address] XRay Report Signed Patient: Debbie SantosdMR#: [id number] : 1940Acct:[id number] Age/Sex: 79 / FDate of Service: 01/30/20 Loc: ED Accession Number: [id number] Procedure: XR chest 1V Ordering Provider: Avery Larios MD PROCEDURE: XR CHEST 1V INDICATIONS: Possible stroke TECHNIQUE: One view of the chest was acquired. COMPARISON: [facility], CR, CHEST 1 VIEW, 06/20/2017, 18:47. FINDINGS: Surgical changes and devices: None. Lungs and pleura: Lungs are clear. No pleural effusions or pneumothorax. Mediastinum: Mediastinal contours appear normal. Heart size is normal. Bones and chest wall: No suspicious bony lesions. Overlying soft tissues appear unremarkable. IMPRESSION: No acute cardiopulmonary findings. Dictated by: Keiry Boykin M.D. on 01/30/2020 at 12:53 Approved by: Keiry Boykin M.D. on 01/30/2020 at 12:54 MRI brain: Radiologist's Impression: [address] [address] Magnetic Resonance Report Signed Patient: Debbie SantosdMR#: [id number] : 1940Acct:[id number] Age/Sex: 79 / FDate of Service: 01/30/20 Loc: ED Accession Number: [id number] Procedure: MR head/brain wo/w con Ordering Provider: Avery Larios MD PROCEDURE: MR HEAD/BRAIN WO/W CON INDICATIONS: Expressive aphasia TECHNIQUE: Noncontrast axial T1 spin echo, axial T2 fast spin echo, sagittal and axial FLAIR, coronal T2 fast spin echo, axial gradient echo, axial diffusion and ADC through the brain. After the administration of contrast, axial and coronal T1 spin echo with fat saturation through the brain. COMPARISON: [facility], CT, CT HEAD/BRAIN WO CON, 01/30/2020, 12:23. FINDINGS: Image quality: Excellent. CSF spaces: Basal cisterns are patent. No extra-axial fluid collections. Ventricles are normal in size and shape. Brain: Within the left posterior temporal/parietal region, there is a focus of increased diffusion-weighted signal seen, as on series 11, image 62. There is associated dark signal seen on the ADC maps. There is increased T2 weighted signal seen at this site. No abnormal enhancement can be seen. Within the central portion of this lesion, there is increased susceptibility artifact, as on series 10, image 13. No midline shift. No intracranial masses. No abnormal intracranial enhancement. There is cerebral volume loss for age. There is periventricular white matter chronic small vessel ischemic change. The brainstem appears normal. Normal intravascular flow voids are present. Relatively prominent perivascular spaces are noted. A presumed hemangioma can be seen involving the deep white matter of the right frontal lobe, with a T2 hypointense rim. Skull and face: Calvarial marrow is normal in signal. Orbits appear normal. Sinuses: Sinuses and mastoids appear clear. Mild rightward nasal septal deviation is incidentally noted. 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 This corresponds to the previously seen CT abnormality. Apparent mild hemorrhagic transformation can be seen at this site. No masses or abnormal enhancement can be seen. Note is made of age-appropriate brain parenchymal volume loss and chronic small vessel ischemic changes. Dictated by: Rajiv Mann M.D. on 01/30/2020 at 17:22 Approved by: Rajiv Mann M.D. on 01/30/2020 at 17:28 ECG Data Attestation: I personally reviewed and interpreted this ECG as follows: Interpretation: EKG at 12:14 p.m.. Normal sinus rhythm. No ST elevation. MDM Narrative Medical decision making narrative: Time 6:46 p.m.. MRI results have returned. 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 Patient is outside the window for tPA/intervention. Symptoms started is 4:00 p.m. yesterday. Again yesterday Time 7:43 p.m.. Still waiting for [facility] stroke team to review the MRI and for disposition to transfer or keep patient here. Sign out dr strickland, awaiting callback <Chip Strickland, DO - Last Filed: 01/31/20 03:27> Lab Data Labs: Lab Results 01/30/20 01/30/20 01/30/20 Range/Units 12:23 12:23 12:23 WBC 6.1 (4.5-11.0) X10^3/uL RBC 4.61 (4.0-5.2) X10^6/uL Hgb 13.9 (12.0-16.0) g/dL Hct 40.9 (36-46) % MCV 88.6 (80-100) fL MCH 30.2 (26-34) PG MCHC 34.1 (30-36) % RDW 13.9 (11.6-14.8) % Plt Count 181 (150-400) X10^3/uL Neut % (Auto) 68.9 (50-75) % Lymph % (Auto) 21.4 L (25-40) % [place] % (Auto) 6.6 (3-14) % Eos % (Auto) 2.2 (2-4) % Baso % (Auto) 0.9 (0-2) % Neut # (Auto) 4200 (4413-1738) /uL Lymph # (Auto) 1300 (7918-4732) /uL [place] # (Auto) 400 (0-900) /uL Eos # (Auto) 100 (0-450) /uL Baso # (Auto) 100 (0-100) /uL PT 11.6 (10.1-12.7) SECONDS INR 1.0 (0.9-1.3) APTT 28 (26.4-36.2) SECONDS Sodium 136 L (137-145) mmol/L Potassium 4.4 (3.4-5.1) mmol/L Chloride 106 (98-107) mmol/L Carbon Dioxide 26 (22-32) mmol/L BUN 14 (7-17) mg/dL Creatinine 0.57 (0.52-1.04) mg/dL Estimated GFR > 60.0 (>60) mL/min BUN/Creatinine Ratio 24.6 H (6-22) Glucose 144 H (80-110) mg/dL Calcium 9.4 (8.4-10.2) mg/dL Total Bilirubin 1.4 H (0.2-1.3) mg/dL AST 47 H (14-36) IU/L ALT 44 H (<35) IU/L Alkaline Phosphatase 125 (38-126) U/L Total Creatine Kinase 55 (30-135) U/L CK-MB (CK-2) TNP CK-MB (CK-2) Rel Index TNP Troponin I < 0.012 (0.01-0.034) ng/mL Total Protein 6.3 (6.3-8.2) g/dL Albumin 3.8 (3.5-5.0) g/dL Globulin 2.5 (1.7-4.1) g/dL Albumin/Globulin Ratio 1.5 (1.0-2.8) U Opiates 300ng/mL cut (Negative) Ur Oxycodone Screen (Negative) Urine Methadone Screen (Negative) Ur Barbiturates Screen (Negative) U Tricyclic Antidepress (Negative) Ur Phencyclidine Scrn (Negative) Ur Amphetamines Screen (Negative) U Methamphetamines Scrn (Negative) Ur MDMA Scrn (Ecstasy) (Negative) U Benzodiazepines Scrn (Negative) Urine Cocaine Screen (Negative) U Marijuana (THC) Screen (Negative) 01/30/20 Range/Units 14:10 WBC (4.5-11.0) X10^3/uL RBC (4.0-5.2) X10^6/uL Hgb (12.0-16.0) g/dL Hct (36-46) % MCV (80-100) fL MCH (26-34) PG MCHC (30-36) % RDW (11.6-14.8) % Plt Count (150-400) X10^3/uL Neut % (Auto) (50-75) % Lymph % (Auto) (25-40) % [place] % (Auto) (3-14) % Eos % (Auto) (2-4) % Baso % (Auto) (0-2) % Neut # (Auto) (2659-0967) /uL Lymph # (Auto) (6534-5387) /uL [place] # (Auto) (0-900) /uL Eos # (Auto) (0-450) /uL Baso # (Auto) (0-100) /uL PT (10.1-12.7) SECONDS INR (0.9-1.3) APTT (26.4-36.2) SECONDS Sodium (137-145) mmol/L Potassium (3.4-5.1) mmol/L Chloride (98-107) mmol/L Carbon Dioxide (22-32) mmol/L BUN (7-17) mg/dL Creatinine (0.52-1.04) mg/dL Estimated GFR (>60) mL/min BUN/Creatinine Ratio (6-22) Glucose (80-110) mg/dL Calcium (8.4-10.2) mg/dL Total Bilirubin (0.2-1.3) mg/dL AST (14-36) IU/L ALT (<35) IU/L Alkaline Phosphatase (38-126) U/L Total Creatine Kinase (30-135) U/L CK-MB (CK-2) CK-MB (CK-2) Rel Index Troponin I (0.01-0.034) ng/mL Total Protein (6.3-8.2) g/dL Albumin (3.5-5.0) g/dL Globulin (1.7-4.1) g/dL Albumin/Globulin Ratio (1.0-2.8) U Opiates 300ng/mL cut Negative (Negative) Ur Oxycodone Screen Negative (Negative) Urine Methadone Screen Negative (Negative) Ur Barbiturates Screen Negative (Negative) U Tricyclic Antidepress Negative (Negative) Ur Phencyclidine Scrn Negative (Negative) Ur Amphetamines Screen Negative (Negative) U Methamphetamines Scrn Negative (Negative) Ur MDMA Scrn (Ecstasy) Negative (Negative) U Benzodiazepines Scrn Negative (Negative) Urine Cocaine Screen Negative (Negative) U Marijuana (THC) Screen Negative (Negative) Point of Care Testing Glucose POC 156 <Chip Strickland DO - Last Filed: 01/31/20 03:27> Critical Care Time Critical Care Time: Yes Total Critical Care Time: 40 Attestation: The high probability of a clinically significant, sudden or life threatening deterioration of the [Neuro] system(s) required my full and direct attention, intervention and personal management. The aggregate critical care time was []40 minutes. This time is in addition to time spent performing reported procedures but includes the following: [x] Data Review and interpretation x[] Patient assessment and monitoring of vital signs [x] Documentation [x] Medication orders and management Discharge Plan Departure Patient Disposition: [facility] Clinical Impression: Stroke Qualifiers: CVA mechanism: unspecified Qualified Code(s): I63.9 - Cerebral infarction, unspecified Discharge Date/Time: 01/31/20 03:20 Prescriptions: No Action bupropion HCl 150 mg tablet sustained-release 12 hr 150 mg PO DAILY RF: 0 citalopram 40 mg tablet 40 mg PO DAILY RF: 0 hydrocodone-acetaminophen [Flushing] 5-325 mg tablet 1 tab PO Q4-6H PRN (Reason: pain) Qty: 10 RF: 0 Referrals: Marie Larios DO [Primary Care Provider] -
--- NOTE | 2020-01-30 13:29 | DI.MRI.S_ITS ---
PROCEDURE: MR HEAD/BRAIN WO/W CON INDICATIONS: Expressive aphasia TECHNIQUE: Noncontrast axial T1 spin echo, axial T2 fast spin echo, sagittal and axial FLAIR, coronal T2 fast spin echo, axial gradient echo, axial diffusion and ADC through the brain. After the administration of contrast, axial and coronal T1 spin echo with fat saturation through the brain. COMPARISON: [facility], CT, CT HEAD/BRAIN WO CON, 01/30/2020, 12:23. FINDINGS: Image quality: Excellent. CSF spaces: Basal cisterns are patent. No extra-axial fluid collections. Ventricles are normal in size and shape. Brain: Within the left posterior temporal/parietal region, there is a focus of increased diffusion-weighted signal seen, as on series 11, image 62. There is associated dark signal seen on the ADC maps. There is increased T2 weighted signal seen at this site. No abnormal enhancement can be seen. Within the central portion of this lesion, there is increased susceptibility artifact, as on series 10, image 13. No midline shift. No intracranial masses. No abnormal intracranial enhancement. There is cerebral volume loss for age. There is periventricular white matter chronic small vessel ischemic change. The brainstem appears normal. Normal intravascular flow voids are present. Relatively prominent perivascular spaces are noted. A presumed hemangioma can be seen involving the deep white matter of the right frontal lobe, with a T2 hypointense rim. Skull and face: Calvarial marrow is normal in signal. Orbits appear normal. Sinuses: Sinuses and mastoids appear clear. Mild rightward nasal septal deviation is incidentally noted. 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 This corresponds to the previously seen CT abnormality. Apparent mild hemorrhagic transformation can be seen at this site. No masses or abnormal enhancement can be seen. Note is made of age-appropriate brain parenchymal volume loss and chronic small vessel ischemic changes. Dictated by: Rajiv Mann M.D. on 01/30/2020 at 17:22 Approved by: Rajiv Mann M.D. on 01/30/2020 at 17:28
[2020-01-30] MEDS: ACETAMINOPHEN 325 MG TABLET 650 MG PO (13:34)
[2020-01-30 14:43] LABS: Ur Creatinine Normal (Normal); Ur Specific Gravity Normal (Normal); Urine Tetrahydrocannabinol Negative (Negative); Urine pH Normal (Normal)
[2020-01-30 14:44] LABS: UR Morphine/Opiate cutoff 300 Negative (Negative); Urine Amphetamines Negative (Negative); Urine Barbiturates Negative (Negative); Urine Benzodiazepines Negative (Negative); Urine Cocaine Negative (Negative); Urine MDMA Negative (Negative); Urine Methadone Negative (Negative); Urine Methamphetamines Negative (Negative); Urine Oxycodone Negative (Negative); Urine Phencyclidine Negative (Negative); Urine Tricyclic Antidepressant Negative (Negative)
[2020-01-30] MEDS: cloNIDine 0.1 MG TABLET PO (15:35)
--- NOTE | 2020-01-30 17:10 | PC.NURSE ---
patient daughters have called and are stating their frustration that we didn't send her mom to another hospital to have an MRI faster. i explained MRI's are a bit difficult from the ED but that we do still have an opening for her and by the time they look at transferring her privately we'd have the picture.
--- NOTE | 2020-01-30 19:09 | PC.NURSE ---
Worsens with lying flat. pt continues to visit with her friend in the room.
[2020-01-31] VITALS (10 sets, daily range): BP systolic 180–196; BP diastolic 67–83; PULSE 57–63; RESP 13–24; O2SAT 95–100
[2020-01-31] MEDS: ACETAMINOPHEN 325 MG TABLET 650 MG PO (01:05)
[2020-01-31] MEDS: NICARDIPINE 25 MG in SODIUM CHLORIDE 0.9% 240 ML 50 ML IV (03:16)
[2020-01-31] MEDS: ONDANSETRON 4 MG/2 ML INJ IV (03:35)
--- NOTE | 2020-02-07 06:16 | PC.NURSE ---
Pt received Nicardipine 25mg in NS 0.9 % 240ml started at 0316 01/30 and running at time of transfer at 0320 on 01/30.
== END 2020-01-31 03:20 | disposition short-term general hospital (02) ==
PROVIDERS: Emergency Medicine; Emergency Provider Emergency Medicine; PCP Family Medicine
DX: I63.9 Cerebral infarction, unspecified (principal); R47.01 Aphasia
CPT/HCPCS: 36415; 70450; 70553; 71045; 80053; 80305; 82550; 82962; 84484; 85025; 85610; 85730; 93005; 93010; 96374; 96375; 99285; 99291; J2405

== ENCOUNTER 2025-06-09 11:30 | Emergency (ER) | payer MEDICARE, OTHER, SELFPAY ==
[2018-10-02 11:42] VITALS: BMI 26.2
[2025-06-09] VITALS (18 sets, daily range): BP systolic 139–167; BP diastolic 65–73; PULSE 51–58; RESP 7–36; TEMP 36.9–37.2; O2SAT 90–98; BMI 25.0
--- NOTE | 2025-06-09 12:39 | ED.WEAKNESS ---
HPI - Weakness General Chief complaint: Weakness Stated complaint: weakness Time Seen by Provider: 06/09/25 11:57 Source: patient Mode of arrival: Ambulatory History of Present Illness HPI Narrative: Patient is a an 85-year-old female history of paroxysmal atrial fibrillation, peripheral arterial disease with a by lateral lower extremity stents, presenting today with ongoing dizziness and nausea. She says that she has been feeling really nauseous she tried vomiting but was dry heaving only. She had 1 episode of loose stool but would not call it area. No abdominal pain she feels like she had burning in the her chest but not actual chest pain. She has also had lower extremity leg pain bilaterally. She is overall feeling better after Zofran from EMS. She denies any fever or chills. She does not feel like the room is spinning she has no numbness tingling or weakness no prior history of vertigo. Related Data Home Medications ?Medication ?Instructions ?Recorded ?Confirmed bupropion HCl 150 mg tablet,12 hr 150 mg PO DAILY 10/03/18 02/20/19 sustained-release citalopram 40 mg tablet 40 mg PO DAILY 10/03/18 02/20/19 Previous Rx's ?Medication ?Instructions ?Recorded hydrocodone 5 mg-acetaminophen 325 1 tab PO Q4-6H PRN pain #10 tabs 01/04/20 mg tablet (Hamilton) ondansetron 4 mg disintegrating 4 mg PO Q8H PRN nausea and 06/09/25 tablet vomiting #10 tabs Allergies Allergy/AdvReac Type Severity Reaction Status Date / Time elaina Allergy Intermediate lip and Verified 01/30/20 12:05 mouth swellling papaya Allergy Intermediate lip and Verified 01/30/20 12:05 mouth swelling Sulfa (Sulfonamide Allergy Intermediate lips and Verified 01/30/20 12:05 Antibiotics) mouth swelling latex (LATEX) Allergy Unknown Rash Verified 01/30/20 12:05 morphine (MORPHINE) Allergy Unknown Hallucinati Verified 01/30/20 12:05 ng Patient History Medical History (Updated 06/09/25 @ 15:43 by Gregoria Moeller DO) Cystocele with rectocele Breast cancer, left Surgical History Status post surgery (10/02/18) Status post left breast lumpectomy History of vaginal hysterectomy Social History household members: none Smoking Status: Never smoker alcohol intake: current Smoking Status: Never smoker alcohol intake frequency: 0-2 drinks per day Exam Initial Vital Signs Initial Vital Signs: Vital Signs Temperature 98.5 F 06/09/25 11:43 Pulse Rate 53 L 06/09/25 11:43 Respiratory Rate 16 06/09/25 11:43 Blood Pressure 145/65 H 06/09/25 11:43 Pulse Oximetry 96 06/09/25 11:43 Oxygen Delivery Method Room Air 06/09/25 11:43 GENERAL: Alert very pleasant 85-year-old female and in no acute distress. HEENT: Head atraumatic,EOMI, pupils reactive, face symmetric, moist mucous membranes CARDIOVASCULAR: Regular rate and rhythm without murmurs, rubs or gallops. RESPIRATORY: Breath sounds equal bilaterally, no wheezes rales or rhonchi. ABDOMEN: Soft, nontender. Normoactive bowel sounds all 4 quadrants. No guarding or rebound. EXTREMITIES: Normal range of motion, no clubbing or edema. Neurovascularly intact. Bilateral palpable pedal pulses feet are warm to touch NEUROLOGICAL: Alert and oriented x4.Normal gait and speech. Cranial nerves II through XII grossly intact. Ticket Counter strength equal bilaterally SKIN: Warm, dry, no laceration, no petechiae, no rashes or lesions. Scores NIH Stroke Scale Level of Conciousness: Alert, keenly responsive Ask month/age: Answers both questions correctly. Open/close eyes, close hand: Performs both tasks correctly Best gaze horizontal: Normal Visual claudio: No visual loss Facial palsy: Normal symetrical movement Left arm drift: No drift for full 10 sec Right arm drift: No drift for full 10 sec Left leg drift: No drift for full 5 sec Right leg drift: No drift for full 5 sec Limb ataxia: Absent Sensory on face/arms/legs: Normal, no sensory loss Best language: No aphasia, normal Dysarthria: Normal Extinction or inattention: No abnormality Total NIH Stroke scale score: 0 Course Orders Ordered: ED Orders 06/09/25 11:52 Complete Blood Count AUTO DIFF Stat Comprehensive Metabolic Panel Stat Lipase Stat Magnesium Stat NT-proBNP (BNP-Adult 18+) Stat Troponin I Stat 06/09/25 12:40 XR chest 1V Stat EKG-12 Lead Stat 06/09/25 12:46 CT head/brain wo con Stat 06/09/25 13:40 Urine Culture Stat Urine Microscopic Stat Discontinued Medications Acetaminophen (Acetaminophen 325 Mg Tablet) 975 mg PO NOW ONE Stop: 06/09/25 12:47 Last Admin: 06/09/25 13:15 Dose: 975 mg Documented By: JACQUI Ondansetron HCl (Ondansetron 4 Mg/2 Ml Inj) 4 mg IV NOW ONE Stop: 06/09/25 15:23 Last Admin: 06/09/25 15:54 Dose: 4 mg Vital Signs Vital signs: Vital Signs - 8 hr 06/09/25 11:43 06/09/25 12:23 06/09/25 12:25 Temperature 98.5 F Pulse Rate 53 L 53 L Respiratory Rate 16 Blood Pressure 145/65 H 165/69 H Pulse Oximetry 96 97 Oxygen Delivery Method Room Air 06/09/25 12:25 06/09/25 12:30 06/09/25 12:30 Temperature Pulse Rate 52 L 51 L Respiratory Rate 36 H 11 L Blood Pressure 147/67 H Pulse Oximetry 95 92 Oxygen Delivery Method MDM - Weakness Lab Data 06/09/25 11:52 06/09/25 11:52 Labs: Lab Results 06/09/25 06/09/25 Range/Units 11:52 13:40 WBC 8.2 (4.5-11.0) X10^3/uL RBC 4.62 (4.0-5.2) X10^6/uL Hgb 13.7 (12.0-16.0) g/dL Hct 40.6 (36-46) % MCV 87.9 (80-100) fL MCH 29.7 (26-34) PG MCHC 33.8 (30-36) % RDW 13.3 (11.6-14.8) % Plt Count 181 (150-400) X10^3/uL Neut % (Auto) 81.6 H (50-75) % Lymph % (Auto) 11.0 L (25-40) % [place] % (Auto) 4.2 (3-14) % Eos % (Auto) 1.7 L (2-4) % Baso % (Auto) 1.5 (0-2) % Neut # (Auto) 6700 (2045-8310) /uL Lymph # (Auto) 900 L (3483-5452) /uL [place] # (Auto) 300 (0-900) /uL Eos # (Auto) 100 (0-450) /uL Baso # (Auto) 100 (0-100) /uL Sodium 139 (137-145) mmol/L Potassium 4.1 (3.4-5.1) mmol/L Chloride 111 H (98-107) mmol/L Carbon Dioxide 22 (22-32) mmol/L BUN 18 H (7-17) mg/dL Creatinine 0.64 (0.52-1.04) mg/dL Estimated GFR > 60 (>60) mL/min BUN/Creatinine Ratio 28.1 H (6-22) Glucose 104 H (70-99) mg/dL Calcium 9.3 (8.4-10.2) mg/dL Magnesium 2.0 (1.6-2.3) mg/dL Total Bilirubin 0.9 (0.2-1.3) mg/dL AST 46 H (14-36) IU/L ALT 14 (<35) IU/L Alkaline Phosphatase 52 (38-126) U/L Troponin I < 0.012 (0.01-0.034) ng/mL NT-Pro-B Natriuret Pep 600 H (<450) pg/mL Total Protein 6.4 (6.3-8.2) g/dL Albumin 3.7 (3.5-5.0) g/dL Globulin 2.7 (1.7-4.1) g/dL Albumin/Globulin Ratio 1.4 (1.0-2.8) Lipase 51 (23-300) U/L Urine RBC 0-1/hpf (0-5/HPF) Urine WBC None seen (0-5/HPF) Ur Squamous Epith Cells 5-10 /hpf H (0-5/HPF) Urine Bacteria Moderate (10-30) H (None) Ur Culture Indicated? Cult not indicated Vol Urine Centrifuged 10ml (spun) Urine Dip Bedside Urine Glucose Negative Bedside Urine Bilirubin - Negative Bedside Urine Ketone - Negative Urine Specific [place] 1.020 Bedside Urine Occult Blood ++ Bedside Urine pH 6.5 Bedside Urine Protein +/- 15 Bedside Urine Urobilinogen - Negative Bedside Urine Nitrite - Negative Bedside Urine Leukocytes - Negative Esterase Imaging Data Chest x-ray: Radiologist Impression: PROCEDURE: XR CHEST 1V INDICATIONS: dizzy TECHNIQUE: One view of the chest was acquired. COMPARISON: [facility], CR, XR CHEST 1V, 01/30/2020, 12:26. FINDINGS: Surgical changes and devices: Left parasternal site monitor. Surgical clips in the left breast. Atherosclerotic vascular calcification noted in the aortic arch. Old healed left proximal humeral fracture. Lungs and pleura: Lungs are clear. No pleural effusions or pneumothorax. Mediastinum: Mediastinal contours appear normal. Heart size is normal. Bones and chest wall: No suspicious bony lesions. Overlying soft tissues appear unremarkable. IMPRESSION: No acute cardiopulmonary abnormality is seen. Approved by: Bjorn Quijano M.D. on 06/09/2025 at 12:48 CT scan - head: Radiologist Impression: PROCEDURE: CT HEAD/BRAIN WO CON INDICATIONS: Dizzy on Eliquis TECHNIQUE: Noncontrast 4.5 mm thick angled axial sections acquired from the foramen magnum to the vertex, with coronal and sagittal reformats. For radiation dose reduction, the following was used: automated exposure control, adjustment of mA and/or kV according to patient size. COMPARISON: [facility], CT, CT HEAD/BRAIN WO CON, 01/30/2020, 12:23. FINDINGS: Image quality: Diagnostic. CSF spaces: Basal cisterns are patent. No extra-axial fluid collections. Ventricles are normal in size and shape. Brain: No midline shift. No intracranial mass effect or hemorrhage. Rosa-white matter interface is normal. Atrophy and chronic ischemic change Skull and face: Calvarium and visualized facial bones are intact, without suspicious lesions. Incidental hyperostosis frontalis interna noted. Sinuses: Visualized sinuses and mastoids are clear. IMPRESSION: No acute intracranial pathology. Approved by: Bjorn Quijano M.D. on 06/09/2025 at 12:45 ECG Data Attestation: I personally reviewed and interpreted this ECG as follows: Prior ECG tracings: available for review Interpretation: Normal sinus rhythm rate 53 SD interval 212 QRS [address] changes similar to previous EKGs MDM Narrative Medical decision making narrative: MDM CC: Nausea vomiting Complicating co-morbidities: Atrial fibrillation, peripheral arterial disease Data collected from: Patient and daughter at bedside Medical records reviewed: Yes, last visit in record is from 2020 she has a CVA Differential considered: Gastroenteritis vertigo intracranial hemorrhage Exam documented above, pertinent findings include: 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 Pertinent findings: CBC no leukocytosis or anemia CMP chloride 111 but no significant other abnormality creatinine 0.6 glucose 104 Magnesium 2.0 Bilirubin liver enzymes within normal limits lipase within normal limits Troponin negative, BNP 600 Independently reviewed EKG as above sinus rhythm without acute changes Imaging studies independently reviewed: Head CT no intracranial hemorrhage Chest x-ray no acute cardiopulmonary process Consultations: [ ] Treatments: Zofran and Tylenol Re-evaluations: Attempted p.o. challenge however patient apparently felt nauseous afterwards but never threw up. She was given another dose of Zofran no longer feeling nauseous tolerating p.o. fluids. She ambulated in the ED without any difficulty Discussion: Patient 85-year-old female presenting today with nausea some vomiting. She has no focal deficits NIH of 0. Do not suspect really vertigo she has not feel like the room is spinning low suspicion for a posterior CVA. Suspect probable gastroenteritis she did have some loose stool but no significant diarrhea. No evidence of significant dehydration blood work is overall reassuring. Imaging does not show any abnormality. Now tolerating p.o. fluids. Strict return precautions Discharge Plan Departure Patient Disposition: Home Clinical Impression: Gastroenteritis Instructions: DI for Viral Gastroenteritis -- Adult Activity Restrictions/Additional Instructions: *You have been diagnosed with gastroenteritis *What to do: At this time increase fluids as tolerated small amounts frequently *Continue to take medications as directed Zofran 4 mg every 8 hours if needed for nausea or vomiting *Follow up with your primary care provider in 2-3 days or call [phone] *Return to ER if you should have persistent vomiting increasing dizziness weakness or any new, worsening or concerning symptoms Prescriptions: New ondansetron 4 mg tablet,disintegrating 4 mg PO Q8H PRN (Reason: nausea and vomiting) Qty: 10 0RF No Action bupropion HCl 150 mg tablet sustained-release 12 hr 150 mg PO DAILY citalopram 40 mg tablet 40 mg PO DAILY hydrocodone-acetaminophen [Hamilton] 5-325 mg tablet 1 tab PO Q4-6H PRN (Reason: pain) Qty: 10 0RF Referrals: Marie Larios DO [Primary Care Provider, [facility]] Stand Alone Forms: Patient Portal/API
--- NOTE | 2025-06-09 12:46 | DI.CT.S_ITS ---
PROCEDURE: CT HEAD/BRAIN WO CON INDICATIONS: Dizzy on Eliquis TECHNIQUE: Noncontrast 4.5 mm thick angled axial sections acquired from the foramen magnum to the vertex, with coronal and sagittal reformats. For radiation dose reduction, the following was used: automated exposure control, adjustment of mA and/or kV according to patient size. COMPARISON: [facility], CT, CT HEAD/BRAIN WO CON, 01/30/2020, 12:23. FINDINGS: Image quality: Diagnostic. CSF spaces: Basal cisterns are patent. No extra-axial fluid collections. Ventricles are normal in size and shape. Brain: No midline shift. No intracranial mass effect or hemorrhage. Rosa- white matter interface is normal. Atrophy and chronic ischemic change Skull and face: Calvarium and visualized facial bones are intact, without suspicious lesions. Incidental hyperostosis frontalis interna noted. Sinuses: Visualized sinuses and mastoids are clear. IMPRESSION: No acute intracranial pathology. Approved by: Bjorn Quijano M.D. on 06/09/2025 at 12:45
[2025-06-09 12:50] LABS: Add Manual Diff / Slide Review NO; Hematocrit 40.6 % (36-46); Hemoglobin 13.7 g/dL (12.0-16.0); Lymphocytes Absolute Auto 900 /uL (1100-4500); Mean Corpuscular HGB Conc 33.8 % (30-36); Mean Corpuscular Hemoglobin 29.7 PG (26-34); Mean Corpuscular Volume 87.9 fL (80-100); Platelet Count 181 X10^3/uL (150-400)
[2025-06-09 12:54] LABS: Albumin 3.7 g/dL (3.5-5.0); Albumin Globulin Ratio 1.4 (1.0-2.8); Alkaline Phosphatase 52 U/L (38-126); Blood Urea Nitrogen 18 mg/dL (7-17); Carbon Dioxide 22 mmol/L (22-32); Chloride 111 mmol/L (98-107); Estimated Glomerular Filt Rate > 60 mL/min (>60); Globulin 2.7 g/dL (1.7-4.1); Glucose 104 mg/dL (70-99); Lipase 51 U/L (23-300); Magnesium 2.0 mg/dL (1.6-2.3); Potassium 4.1 mmol/L (3.4-5.1); Sodium 139 mmol/L (137-145); Total Protein 6.4 g/dL (6.3-8.2)
[2025-06-09 12:55] LABS: Alanine Aminotransferase 14 IU/L (<35); Calcium 9.3 mg/dL (8.4-10.2); HEMOLYSIS 22 (0-50)
[2025-06-09 13:06] LABS: NT-proBNP (BNP-Adult 18+) 600 pg/mL (<450); Troponin I < 0.012 ng/mL (0.01-0.034)
[2025-06-09] MEDS: ACETAMINOPHEN 325 MG TABLET 975 MG PO (13:15)
--- NOTE | 2025-06-09 13:42 | EKG_ITS ---
[address] [id number] [place] [address] Test Date: 2025-06-09 Pat Name: Juani Santos Department: [facility] Room: Gender: Female Research Quality Assurance Specialist: JARROD : 1940 Requested By: Order Number: [id number] Reading MD: Gabino Rodriguez Measurements Intervals [place] Rate: 53 P: 64 HI: 212 QRS: 37 QRSD: 88 T: 13 QT: 480 QTc: 450 Interpretive Statements Sinus bradycardia with 1st degree AV block Nonspecific ST abnormality Electronically Signed On 06-10-2025 7:51:10 PST by Gabino Rodriguez
[2025-06-09 14:04] LABS: Culture Indicated Urine Cult Not Indicated
[2025-06-09] MEDS: ONDANSETRON 4 MG/2 ML INJ IV (15:54)
== END 2025-06-09 16:27 | disposition home or self-care (01) ==
PROVIDERS: Emergency Provider Emergency Medicine; PCP Family Medicine
DX: K52.9 Noninfective gastroenteritis and colitis, unspecified (principal); R42 Dizziness and giddiness; I48.91 Unspecified atrial fibrillation
CPT/HCPCS: 70450; 71045; 80053; 81003; 81015; 83690; 83735; 83880; 84484; 85025; 87086; 93005; 96374; 99284; J2405